=== PATIENT | female | born 1975 | race Caucasian/White ===

== ENCOUNTER 2023-10-26 09:13 | Outpatient (CLI) | payer OTHER, SELFPAY ==
--- OUTSIDE RECORDS SUMMARY | 2023-10-26 09:19 | XMS_ITS | Clinical Summary ---
Author Organization [facility] Address [place], [place] [address] Care Team Providers Care Bottle House Cleaners Supervisor Name Role Phone Mary Dennis CHECK GRADER Unavailable Unavailable Radha Vázquez MD Primary Care P rovider Allergies Active Allergy Reactions Criticality Noted Date Comments Morphine Rash 09/06/2008 Erythromycin With Ethanol 03/25/2006 Medications Medication Sig Dispensed Refills Start Date End Date Status multivitamin (MVI) tabletIndications: Abnormal urine odor Take 1 tablet by mouth once daily. 0 12/28/19 10 Active acetaminophen (TYLENOL EXTRA STRGTH) 500 mg tabletIndications: Other acute postoperative pain,Displacement of lumbar intervertebral disc without myelopathy Take 2 tablets by mouth 4 times daily for 5 days then take only as needed. Max acetaminophen dose: 4000mg in 24 hrs 60 tablet 08/12/19 15 Active cyanocobalamin (VITAMIN B12) 100 mcg tablet Take 100 mcg by mouth once daily. Active docusate (COLACE) 100 mg capsuleIndications :Constipation due to opioid therapy Take 1 capsule by mouth 2 times daily if needed for Constipation. 180 capsule 2 02/09/20 20 Active ondansetron (ZOFRAN) 4 mg tabletIndications: S/P right rotator cuff repair Take 1 Tablet (4 mg) by mouth every 8 hours if needed for Nausea/Vomiting. 20 Tablet 09/18/19 23 Active Denta 5000 Plus 1.1 % crea BRUSH WITH TOOTHPASTE ONCE TO TWICE DAILY 08/13/19 23 Active acyclovir (ZOVIRAX) 400 mg tabletIndications: Herpes simplex type 1 infection Take 1 Tablet (400 mg) by mouth two times daily. 180 Tablet 3 11/28/19 Active famotidine (PEPCID) 40 mg tabletIndications: Gastroesophageal reflux disease without esophagitis,Postga stric surgery syndrome Take 1 Tablet (40 mg) by mouth once daily. 90 Tablet 3 11/28/19 Active levonorgestrel-eth inyl estrad, 0.15-30 mg-mcg, (Ramon, 28,) 0.15-0.03 mg tabletIndications: Uses control Take 1 Tablet by mouth once daily. 84 Tablet 3 11/28/19 Active omeprazole (PRILOSEC) 20 mg Delayed-Release capsuleIndications :Gastroesophageal reflux disease without esophagitis,Postga stric surgery syndrome Take 1 Capsule (20 mg) by mouth once daily before a meal. 90 Capsule 3 11/28/19 Active potassium chloride (MICRO-K) 10 mEq Controlled-release capsuleIndications :Hypokalemia Take 2 Capsules (20 mEq) by mouth two times daily with meals. 360 Capsule 3 11/28/19 Active torsemide (DEMADEX) 20 mg tabletIndications: Swelling of lower extremity Take 2-3 Tablets (40-60 mg) by mouth once daily. Take 3 tablets on days when swelling is worse. 180 Tablet 3 11/28/19 23 Active cephalexin (KEFLEX) 250 mg capsuleIndications :Recurrent UTI Take 1 tablet (250 mg) once a day for UTI suppression. 90 Capsule 3 01/03/20 23 Active cephalexin (Keflex) 500 mg capsuleIndications :Cellulitis of left lower extremity Take 2 Capsules (1,000 mg) by mouth three times daily. 42 Capsule 12/27/19 23 Active tirzepatide, weight loss, (Zepbound) 2.5 mg/0.5 mL penIndications:Zheng ght loss counseling, encounter for Inject 0.5 mL (2.5 mg) subcutaneous once weekly. For 4 weeks, then increase to 5 mg (2 pens) once per week 2 mL 1 04/16/19 24 Active ARIPiprazole (ABILIFY) 15 mg tabletIndications: Moderate episode of recurrent major depressive disorder (HC),Anxiety disorder, unspecified type Take 0.5 Tablets (7.5 mg) by mouth once daily. 45 Tablet 1 05/28/19 24 Active busPIRone (BUSPAR) 30 mg tabletIndications: Anxiety disorder, unspecified type Take 1 Tablet (30 mg) by mouth two times daily. 180 Tablet 1 05/28/19 24 Active hydrOXYzine HCL (ATARAX) 10 mg tabletIndications: Anxiety disorder, unspecified type Take 0.5-1 Tablets (5-10 mg) by mouth every 6 hours if needed for Anxiety (nausea). 60 Tablet 2 05/28/19 24 Active lamoTRIgine (LAMICTAL) 200 mg tabletIndications: Moderate episode of recurrent major depressive disorder (HC) Take 1 Tablet (200 mg) by mouth two times daily. 180 Tablet 1 05/28/19 24 Active sertraline (ZOLOFT) 100 mg tabletIndications: Moderate episode of recurrent major depressive disorder (HC),Anxiety disorder, unspecified type Take 1 Tablet (100 mg) by mouth two times daily. 180 Tablet 1 05/28/19 24 Active metFORMIN (GLUCOPHAGE XR) 500 mg Extended-Release tabletIndications: Weight loss counseling, encounter for Take 2 Tablets (1,000 mg) by mouth once daily. 60 Tablet 3 07/16/19 24 Active levothyroxine (Euthyrox) 125 mcg tabletIndications: Hypothyroidism, unspecified type Take 1 Tablet (125 mcg) by mouth once daily. 90 Tablet 3 07/16/19 24 Active pseudoephedrine (SUDAFED 12 HOUR) 120 mg TbERIndications:Na marbin congestion Take 1 Tablet (120 mg) by mouth every 12 hours. 180 Tablet 1 07/20/19 24 Active naloxone (Narcan) 4 mg/actuation nasal sprayIndications:C hronic pain syndrome,Controlle d substance agreement signed 1 spray (4 mg) intranasally into 1 nostril. Administer into alternating nostrils. May repeat every 2 to 3 minutes. 1 Each 1 08/09/19 24 Active methocarbamoL (ROBAXIN) 750 mg tabletIndications: Chronic pain syndrome,Chronic right SI joint pain,Spasm TAKE 1 TO 2 TABLETS BY MOUTH EVERY 6 HOURS FOR MUSCLE SPASM 240 Tablet 09/08/19 24 Active gabapentin (NEURONTIN) 300 mg capsuleIndications :Chronic pain syndrome,Post laminectomy syndrome,Chronic right SI joint pain,Failed back surgical syndrome TAKE 2 CAPSULES IN THE AFTERNOON AND 3 CAPSULES AT BEDTIME 150 Capsule 10/01/19 24 Active buprenorphine (Belbuca) 150 mcg buccal filmIndications:Ch ronic pain syndrome,Post laminectomy syndrome,Chronic right SI joint pain,Failed back surgical syndrome Place 1 Film (150 mcg) in mouth, between cheek & gum every 12 hours. Use date: 10/15/23-11/13/23 60 Each 10/12/19 Active HYDROcodone-acetam inophen (7.5-325 mg/tablet)Indicati ons:Chronic pain syndrome,Post laminectomy syndrome,Failed back surgical syndrome,Encounter for therapeutic drug monitoring Take 1-1.5 Tablets by mouth every 4 hours if needed for Pain (max 5/day). Use dates 10/20/23-11/18/23 150 Tablet 10/17/19 Active buprenorphine (Belbuca) 75 mcg buccal filmIndications:Ch ronic pain syndrome Place 1 Film (75 mcg) in mouth, between cheek & gum at bedtime. Use date: 06/17/23-07/16/23 30 Each 06/14/19 24 024 Discontinued(*M ed complete/Regime n complete/Level of care change) gabapentin (NEURONTIN) 300 mg capsuleIndications :Chronic pain syndrome,Post laminectomy syndrome,Chronic right SI joint pain,Failed back surgical syndrome TAKE 2 CAPSULES IN THE AFTERNOON AND 3 CAPS AT BEDTIME 150 Capsule 08/09/19 24 024 Discontinued buprenorphine (Belbuca) 150 mcg buccal filmIndications:Ch ronic pain syndrome,Post laminectomy syndrome,Chronic right SI joint pain,Failed back surgical syndrome Place 1 Film (150 mcg) in mouth, between cheek & gum every 12 hours. Use date: 09/15/23-10/14/23 60 Each 09/12/19 24 024 Discontinued(Re order (E-cancel not sent)) HYDROcodone-acetam inophen (7.5-325 mg/tablet)Indicati ons:Chronic pain syndrome,Post laminectomy syndrome,Failed back surgical syndrome,Encounter for therapeutic drug monitoring Take 1-1.5 Tablets by mouth every 4 hours if needed for Pain (max 5/day). Use dates 09/20/23-10/19/23 150 Tablet 09/17/19 24 024 Discontinued(Re order (E-cancel not sent)) Active Problems Problem Noted Date Diagnosed Date Raynaud's phenomenon without gangrene 05/18/2023 Lateral epicondylitis of right elbow 12/07/2022 Controlled substance agreement signed 11/30/2022 Overview: [facility] Elaine Schwab CMA 1:36 PM 11/30/22 S/P right rotator cuff repair 10/30/2022 Nontraumatic complete tear of right rotator cuff 09/17/2022 S/P arthroscopy of right shoulder 09/17/2022 Severe episode of recurrent major depressive disorder, without psychotic features 03/14/2021 Hyperparathyroidism 01/28/2021 Overview: saw Endo in 2016, suspect eitology is due to D3 and Calcium deficiency related to Irving-Y Gastric bypass minimum of 500 mg of calcium 5000 International Units per day of D3 Hypertriglyceridemia 11/30/2020 Overview: 11/30/20 ASCVD risk score is 0%, TG 189, would not initiate statin or other medication at this time, cont healthy diet and exercise [ ] repeat lipid check in 2021 Last Lipids: Chol: 11/29/2020 160 T11/29/2020 189 HDL: 11/29/2020 63 LDL: 11/29/2020 59 LDL DIRECT: . No results found in past 5 years The 10-year ASCVD risk score (Carlo FINN Jr., et al., 2013) is: 0.3% Values used to calculate the score: Age: 45 years Sex: Female Is Non- : No Diabetic: No Tobacco smoker: No Systolic Blood Pressure: 102 mmHg Is BP treated: Yes HDL Cholesterol: 63 mg/dL Total Cholesterol: 160 mg/dL CKD (chronic kidney disease) stage 3, GFR 30-59 ml/min 11/29/2020 Overview: 2/2 multiple AKIs in setting of multiple UTI, most severe UTI had E coli Sepsis in December of 2019, was on ventilator requiring dialysis. Was able to stop dialysis in Dec 2019 but Cr plateaued at 1.9 despite trying to adjust medications that might have made it worse (torsemide and omeprazole) Recurrent UTI 11/29/2020 Overview: recurrent UTIs in [id number], had CT imaging negative for stones, cystoscopy with normal bladder wall Pain disorder with related psychological factor 03/28/2019 Sleep difficulties 04/30/2017 H/O sinusitis 01/22/2017 Overview: Has been on Chronic Pseudophed - helped to decrease the sinusitis. Was off pseudophed for a few months when Dr. Hogan left and had no refills and chronic post nasal drip was increased, coughing up more phelgm and nauseated due to phglem Anxiety disorder 10/27/2016 Genital herpes simplex 06/14/2015 MIld bilateral hip arthritis 03/20/2015 Chronic pain 03/14/2015 Obesity 09/23/2014 Arthritis of hand, left, degenerative 12/14/2013 L4-5 disk herniation 03/06/2013 Peripheral edema 12/03/2011 YOLANDA I (cervical intraepithelial neoplasia I) 02/2011 Overview: 05/30/2009 ASCUS/HPV+ 06/09/2010 LSIL 07/08/2010 [facility]: YOLANDA I 06/11/2011 LSIL 07/07/2011 [facility]: negative 03/29/2012 NIL/HPV+; [facility]: cervicitis 08/27/2015 ASCUS/HPV negative; [facility]: no biopsy 12/08/2019 NIL/HPV negative 11/27/2022 NIL/HPV negative Plan: Pap/HPV due 11/2025 Unspecified personality disorder 10/04/2009 Vitamin B12 deficiency 09/06/2008 Overview: after gastric bypass surgery (low normal B12; elevated methylmalonic acid) Premenstrual tension syndromes 03/25/2006 Unspecified hypothyroidism 03/25/2006 Gastroesophageal reflux disease without esophagi tis 03/25/2006 Chronic, continuous use of opioids Resolved Problems Problem Noted Date Diagnosed Date Resolved Date Controlled substance agreement signed 06/13/2021 11/30/2022 Overview: [facility] Patti Suazo .................... 06/13/2021 2:32 PM Controlled substance agreement signed 05/10/2020 06/13/2021 MILANA (acute kidney injury) 01/08/2020 Septic encephalopathy 01/06/20202020 Metabolic acidosis 01/06/2020 Metabolic acidemia 01/06/2020 Metabolic acidosis with respiratory acidosis 0 11/01/2020 Acute respiratory failure with hypercapnia 01/06/2020 11/01/2020 Septic shock due to undetermined organism 01/06/2020 11/01/2020 Pyelonephritis due to Escherichia coli 01/06/2020 11/01/2020 At risk for fluid volume overload 01/05/2020 11/01/2020 Acute renal failure (ARF) 01/05/2020 Severe sepsis with acute organ dysfunction 01/04/2020 11/01/2020 Sepsis secondary to UTI 01/04/202010/23 Encounter for screening labo ratory testing for COVID-19 virus 01/04/2020 11/01/2020 Hypokalemia 01/04/2020 11/01/2020 Controlled substance agreement signed 05/12/2019 06/13/2021 Overview: Judy Rios .[facility] Ami Huffman CMA....05/12/2019 1:08 PM Encounters for unspecified a dministrative purpose 03/28/2019 11/29/2020 Sepsis due to gram-negative urinary tract infection 12/12/2018 11/01/2020 MILANA (acute kidney injury) 12/11/2018 UTI (urinary tract infection) 12/11/2018 11/01/2020 Controlled substance agreement signed 07/15/2018 05/12/2019 Therapeutic drug monitoring 10/23/2016 11/29/2020 GABRIELLA (generalized anxiety disorder) 03/14/2015 04/12/2018 Pain medication agreement 04/24/2011 Overview: Signed at [facility] on 09/17/17 Major depressive disorder, r ecurrent episode, moderate 10/04/2009 04/12/2018 Unspecified constipation 02/25/2009 Unspecified essential hypertension 04/06/2007 05/30/2009 Major depressive disorder, r ecurrent episode, in full remission 04/06/2007 10/04/2009 Anxiety state, unspecified 03/25/2006 0 05/05/2016 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 09/19/2021 Unsatisfactory cervical cytology smear 06/24/2015 Overview: UNS Encounter for screening colonoscopy 11/05/2022 Encounters Date Type Department Care Team Description 10/20/2023 8:30 AM CDT Office Visit [facility] [address] [place] [address] Shivani Marinelli NP Follow Up 10/20/2023 Travel 10/11/2023 Refill [facility] [address] [place] [address] Siobhan Mills PA Refill Request 10/01/2023 Refill [facility] [address] [place] [address] Siobhan Mills PA Refill Request (Gabapentin) 09/20/2023 Medical Messaging [facility] [address] [place] [address] Harman Martinez MD Steroid pills 09/17/2023 1:45 PM CDT - 09/17/2023 11:59 PM CDT Hospital Encounter [facility] [address] [place] [address] Encounter for screening for malignant neoplasm of breast, unspecified screening modality 09/17/2023 Travel 09/10/2023 Refill [facility] [address] [place] [address] Siobhan Mills PA Refill Request (buprenorphine and HYDROcodone-acetaminop hen ) 09/06/2023 1:20 PM CDT Office Visit [facility] [address] [place] [address] Harman Martinez MD Musculoskeletal Problem (Consult low back pain, last seen in 2016) 09/06/2023 Refill [facility] [address] [place] [address] Siobhan Mills PA Refill Request (Methocarbamol) 09/06/2023 Travel 09/03/2023 7:45 AM CDT Telemedicine [facility] [address] [place] [address] Judy Luis MD Medication Management; Telehealth 09/03/2023 Travel 08/20/2023 3:15 PM CDT Office Visit [facility] [address] [place] [phone] Teresa Coy PA Ankle Pain/problem (Left ankle pain) 08/20/2023 Travel 08/16/2023 Telephone [facility] [place] [address] [address] Bob Mcfarlane DPM Referral 08/15/2023 4:44 PM CDT - 08/15/2023 7:[address] [facility] [address] [place] [address] Karuna Christopher PA Injury of left ankle, initial encounter (Primary Dx) Discharge Disposition: Home Self Care 08/15/2023 Travel 08/13/2023 10:25 AM CDT Ancillary Procedure [facility] [address] [place] [address] 08/13/2023 Travel 08/11/2023 Orders Only [facility] [address] [place] [address] Radha Vázquez MD 1 scan: (1-Ord) RAYUS RAD, LUMBAR SPINE WO 1.2T OPEN, 08/06/2023 08/10/2023 Refill [facility] [address] [facility] [address] [place] [address] Jessi Christensen NP Refill Request (Belbuca films 150 mg BID andNorco7.5 mg to [facility] in [place]) 08/08/2023 Refill [facility] [address] [facility] [address] [place] [address] Siobhan Mills PA Refill Request (Gabapentin, Methocarbamol) from Last 3 Months Immunizations Name Administration Dates Next Due COVID-19 Vaccine Spikevax (M oderna 50mcg/0.5mL) 12YO+ [id number] Formula PF 07/16/2023 COVID-19 vaccine (Moderna 100mcg/0.5mL) PF, MDV 06/27/2020,05/29/2020 COVID-19 vaccine (Pfizer-Bio NTech 30mcg/0.3mL) 12YO+ BIVALENT PF, MDV 11/28/2021 COVID-19 vaccine (Pfizer-Bio NTech 30mcg/0.3mL) 12YO+ WU-SUCROSE PF, MDV 09/19/2021 DTP 06/05/1981, 8,1976,1976,1976 Hepatitis A (Adult) 04/03/2013,07/23/2011 Hepatitis B (Adult) 12/03/2009,10/29/2009 Hepatitis B (Peds) 07/23/2011 Human Papilloma Virus Vaccine 03/25/2006 Influenza, IIV3 (Age >=3 years) 11/23/19 16,11/21/2013,11/29/2012,2011,12/04/2010 Influenza, IIV4 11/17/2022, 2,11/29/2020,2019,12/27/2018,02/28/2018,01/08/2017,1 MMR 07/21/1989,07/16/1977,1976 Oral Polio Vaccine 06/05/1981, 8,1976,1976,1976 Pneumococcal Conj 20-valent (Prevnar 20) 11/27/2022 Td (Age >=7 Years) 09/19/2021,02/26/2005 Tdap 07/23/2011 Family History Medical History Relation Name Comments Good Health Brother 2 Hypertension Father Cancer-colon Maternal Aunt Heart Disease Maternal Grandfather Other Maternal Grandmother ANEURYS M Diabetes Mother Hypertension Mother Osteoporosis Mother fractured pelvi s Urolithiasis Mother Cancer-breast Paternal Aunt Heart Disease Paternal Grandfather Seizures Paternal Grandmother MS Relation Name Status Comments Brother 1 Alive Brother 2 Father Alive Maternal Aunt Maternal Grandfather Maternal Grandmother Mother Alive Paternal Aunt Paternal Grandfather Paternal Grandmother Social History Tobacco Use Types Packs/Day Years Used Date Smoking Tobacco: Former Cigarettes 1 3 0 02/23/1996 - 02/22/1999 Smokeless Tobacco: Never Tobacco Cessation:Counseling Given: Yes Alcohol Use Standard Drinks/Week Comments No 0 (1 standard drink = 0.6 oz pur e alcohol) PHQ-2 Answer Date Recorded PHQ-2 TOTAL SCORE 2 09/03/2023 Social Connections Answer Date Recorded Frequency of Communication with Friends and Fami ly Not on file 02/13/2021 Alcohol Use Answer Date Recorded How often do you have a drink containing alcohol ? 0 08/22/2021 Average Number of Drinks Not on file 022 Frequency of Binge Drinking Not on file 02/2021 Financial Resource Strain Answer Date R ecorded Difficulty of Paying Living Expenses Not on file 02/13/2021 Difficulty of Paying Living Expenses Not on file 02/13/2021 Sex and Gender Information Value Date Recorded Sex Assigned at Not on file Gender Identity Not on file Sexual Orientation Not on file Obstetrics History Para Term AB IAB SAB Ectopic Multiple Livin g Live Births 0 0 0 0 0 0 0 0 0 0 Last Filed Vital Signs Vital Sign Reading Time Taken Comments Blood Pressure 125/89 10/20/2023 8:42 AM CDT Pulse 93 10/20/2023 8:42 AM CDT Temperature 36.3 ??C (97.3 ??F) 10/20/2023 8:42 AM CD T Respiratory Rate 14 10/20/2023 8:42 AM CDT Oxygen Saturation 100% 10/20/2023 8:42 AM CDT Inhaled Oxygen Concentration - - Weight 123.9 kg (273 lb 3.2 oz) 09/06/2023 1:26 PM CDT shoes on Height 162.6 cm (5' 4) 08/15/2023 4:49 PM CDT Body Mass Index 46.89 08/15/2023 4:49 PM CDT Plan of Treatment Upcoming Encounters Date Type Department Care Team (Late st Contact Info) Description 10/26/2023 9:40 AM CDT Office Visit [facility] [address] [place] [address] Harman Martinez MD [address] [facility] [address] Arrived 11/26/2023 7:45 AM CDT Telemedicine [facility] [address] [place] [address] Judy Luis MD [address] [place] [address] 12/24/2023 10:00 AM CDT Office Visit [facility] [address] [facility] [place] [address] Harman Martinez MD [address] [place] [address] 01/28/2024 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 Visit [facility] [address] [place] [address] Siobhan Mills PA [address] [place] [address] Health Maintenance Due Date Last Done Comments Influenza for age 9-49 10/24/2023 3, 11/28/2021, 11/29/2020, Additional history exists BMI (ht and wt on same day) for age 18+ 07/15/2024 07/16/2023, 11/27/2022, 08/27/2022, Additional history exists Depression screening for age 12+ 09/05/2024 09/06/2023, 09/03/2023, 05/28/2023, Additional history exists Mammogram for age 45-75 09/16/2024 09/17/19 24, 11/06/2021, 08/18/2019, Additional history exists Pap test for age 21-65 11/27/2025 3, 11/27/2022, 12/08/2019, Additional history exists Lipids for age 45-75 11/28/2027 11/27/2022, 03/19/2022, 03/04/2022, Additional history exists Tetanus booster 09/20/2031 09/19/2021, 06/24, 02/26/2005 Colonoscopy through age 75 05/04/2032 05/04/2022 Hepatitis C screening for age 18-79 Completed 02/18/2011, 10/09/2009, 12/05/2008, Additional history exists Tdap Completed 07/23/2011 HIV for age 15-65 Completed 09/19/2021, , 10/09/2009, Additional history exists Pneumococcal series for age 6-64 Aged Out 11/27/2022 No longer eligible based on patient's age to complete this topic COVID-19 vaccine series Completed 07/16/19 24, 11/28/2021, 09/19/2021, Additional history exists Medical Devices Implanted Type Area Javascript Engineer Device Identifier Shelf Expiration Date Model / Serial / Lot Ancr Soft Tissue [id number] Swivelock - [id number] Implanted:Qty: 1 on 09/17/2022 by Memo Eaton MD at [facility] Right: Shoulder [employer] 03/24/2026 AR-[id number] / / [id number] Biocomposite Knotless Swivelock [place] Implanted:Qty: 1 on 09/17/2022 by Memo Eaton MD at [facility] Right: Shoulder [employer] 05/22/2026 / [id number] C / [id number] Biocomposite Knotless Swivelock [place] Implanted:Qty: 1 on 09/17/2022 by Memo Eaton MD at [facility] Right: Shoulder [employer] 10/22/2025 / [id number] CTT / [id number] Biocomposite Knotless Swivelock [place] Implanted:Qty: 1 on 09/17/2022 by Memo Eaton MD at [facility] Right: Shoulder [employer] 04/21/2026 / [id number] C / [id number] Biocomposite Knotless Swivelock [place] Implanted:Qty: 1 on 09/17/2022 by Memo Eaton MD at [facility] Right: Shoulder [employer] 09/21/2025 / [id number] CT / [id number] Procedures Procedure Name Priority Date/Time Associated Diagnosis Comments AMB EPIDURAL STEROID INJECTION Routine 10/26/2023 8:20 AM CDT Lumbar radiculopathy 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 XR MAMMO BILAT SCREENING Routine 09/17/2023 2:03 PM CDT Encounter for screening for malignant neoplasm of breast, unspecified screening modality XR ANKLE 3 VIEWS LEFT STAT 08/15/2023 5:41 PM CDT XR CALCANEUS 2 VIEWS LEFT Routine 08/13/2023 10:24 AM CDT Chronic heel pain, left MR SPINE LUMBAR WO Routine 08/06/2023 12 :00 AM CDT Neuropathy of right foot HPV THIN PREP Routine 11/27/2022 11:16 AM CDT Screening for cervical cancer LIPID PANEL W REFLEX MEASURED LDL Routine 11/27/2022 10:33 AM CDT 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 ??Recommend annual mammograms. MAMMOGRAM ASSESSMENT: ??ACR 1 Negative PATIENTS: You will also receive a letter with your examination results in an easy to read format. ??If you have questions about your results, please contact your referring provider. Narrative 09/17/2023 3:44 PM CDT For Patients: As a result of the Cures Act, medical imaging exams and procedure reports are released immediately into your electronic medical record. You may view this report before your referring provider. If you have questions, please contact your health care provider. XR MAMMO BILAT SCREENING [[id number]] CLINICAL HISTORY: ??This is an asymptomatic 48 y.o. patient. INDICATION FOR EXAM: Mammogram Screening. TECHNIQUE: CC & MLO views were obtained. ??This study was evaluated with the assistance of Computer-Aided Detection. COMPARISON FILM: Yes 11/06/21 [place] ?? FINDINGS: ??The breasts are almost entirely fatty. There are no dominant masses, suspicious micro calcifications or areas of architectural distortion. Radha Vázquez MD MAMMO * XR ANKLE 3 VIEWS LEFT (08/15/2023 5:41 PM CDT) Anatomical Region Laterality Modality ANKLES, ANKLE L Digital Radiogra phy 08/15/2023 6:42 PM CDT Narrative 08/15/2023 6:42 PM CDT For Patients: ??As a result of the Cures Act, medical imaging exams and procedure reports are released immediately into your electronic medical record. ??You may view this report before your referring provider. ??If you have questions, please contact your health care provider. Indication: Trauma. Technique: Left ankle, 3 views. Comparison: None. Findings/Impression: Bones: Alignment is normal. Chronic appearing bimalleolar avulsive changes. Recommend correlation with point tenderness for to exclude acute avulsion injury. Otherwise, no displaced fractures or bone lesions. ?? Joint spaces: Degenerative changes. Soft tissues: Diffuse subcutaneous edema. Dictated by Zohaib Mcwilliams MD @ 08/15/2023 6:42:22 PM (Electronically Signed) Procedure Note Zohaib Mcwilliams MD - 08/15/2023 For Patients: As a result of the Cures Act, medical imagingexams and procedure reports are released immediately into your electronicmedical record. You may view this report before your referring provider.If you have questions, please contact your health care provider. Indication: Trauma. Technique: Left ankle, 3 views. Comparison: None. Findings/Impression: Bones: Alignment is normal. Chronic appearing bimalleolar avulsivechanges. Recommend correlation with point tenderness for to exclude acuteavulsion injury. Otherwise, no displaced fractures or bone lesions. Joint spaces: Degenerative changes. Soft tissues: Diffuse subcutaneous edema. Dictated by Zohaib Mcwilliams MD @ 08/15/2023 6:42:22 PM (Electronically Signed) Karuna NUNES GENERAL IMAGING * XR CALCANEUS 2 VIEWS LEFT (08/13/2023 10:24 AM CDT) Anatomical Region Laterality Modality CALCANEI, CALCANEUS L Computed R adiography Narrative 08/13/2023 11:13 AM CDT Indication: Chronic left heel pain. Technique: 2 views of the left calcaneus. Findings: Plantar calcaneal spur. ??Tiny posterior spur along the Achilles tendon insertion site. ??No fracture, dislocation, or erosion. Impression: Calcaneal spurring. ??The examination is otherwise negative. Radha Vázquez MD GENERAL IMAGING * MR SPINE LUMBAR WO (08/06/2023 12:00 AM CDT) Anatomical Region Laterality Modality Spine, LUMBAR SPINE Magnetic Res onance Radha Vázquez MD MR * HPV HIGH RISK (11/27/2022 11:16 AM CDT) TYPE 16 Negative Negative 12/02/2022 5:48 AM CDT [facility] [employer] [facility] TYPE 18 Negative Negative 12/02/2022 5:48 AM CDT [facility] [employer] OTHER HIGH RISK TYPES Negative Negative 12/02/2022 5:48 AM CDT [facility] [employer] Other (Cervical) Non-Blood / Unknown 11/27/2022 11:16 AM CDT 11/30/2022 9:44 AM CDT Narrative [facility] - 12/02/2022 5:48 AM CDT HPV types 16, 18, 31, 33, 35, 39, 45, 51, 52, 56, 58, 59, 66 and 68 DNA were undetectable or below the pre-set threshold. Methodology: Sarah Kobi 4800 HPV Test Radha Vázquez MD [facility] [address] [place] [address], * LIPID PANEL W REFLEX MEASURED LDL (11/27/2022 10:33 AM CDT) CHOLESTEROL,TOTAL 176 100 - 199 mg/dL 11/27/2022 12:00 PM [facility] Comment: Cholesterol, Total Reference Ranges Desirable <200 mg/dL Borderline 200-239 mg/dL High >=240 mg/dL TRIGLYCERIDES 147 <150 mg/dL 11/27/2022 12:00 PM [facility] HDL CHOLESTEROL 65 >40 mg/dL 12:00 PM [facility] NON-HDL CHOLESTEROL 111 <145 mg/dl 11/27/2022 12:00 PM [facility] CHOL/HDL RATIO 2.71 <4.50 11/27/2022 12:00 PM [facility] LDL CHOLESTEROL 82 <=130 mg/dL 11/27/2022 12:00 PM [facility] VLDL CHOLESTEROL 29 <=30 mg/dL 11/27/2022 12:00 PM [facility] PROVIDER ORDERED STATUS RANDOM 11/27/2022 12:00 PM [facility] Blood BLOOD SPECIMEN / Unknown Venipuncture / Unknown 11/27/2022 10:33 AM CDT 11/27/2022 10:34 AM CDT Judy Luis MD CHEMISTRY [facility] [address] [place] [address] * COLONOSCOPY (05/04/2022 11:08 AM CDT) 05/04/2022 11:0 8 AM CDT Narrative Transcriptions Ezekiel Linda, - 05/04/2022 11:40 AM CDT Patient Name: Karuna Nelson Procedure Date: 05/04/2022 Gender: Female Date of : 1975 Admit Type: Ambulatory Procedure: Colonoscopy Proceduralist: Ezekiel Linda MD [facility] Referring MD: Radha Vázquez Indications/Pre-Op Diagnosis: Screening for colorectal malignant neoplasm, This is the patient's first colonoscopy Medications: Propofol per Anesthesia Procedure Description: The patient had risks, benefits and alternatives explained to andgave informed consent. The patient had a stable cardiopulmonary status and judged an adequate candidate for conscious sedation. The endoscope [id number] was passed through the anus andadvanced to the cecum, identified by appendiceal orifice and ileocecal valve.The colonoscopy was performed without difficulty. The patient toleratedthe procedure well. The quality of the bowel preparation was adequate to identify polyps greater than 5 mm in size. The ileocecal valve, appendiceal orifice, and rectum were photographed. Complications: No immediate complications. Estimated Blood Loss & Specimen: Estimated blood loss: none. Specimen collected - None Findings: Non-bleeding internal hemorrhoids were found during retroflexion. The hemorrhoids were Grade II (internal hemorrhoids that prolapse butreduce spontaneously). Impressions/Post-Op Diagnosis: - Non-bleeding internal hemorrhoids. - No specimens collected. Recommendation: - Discharge patient to home. - Patient has a contact number available for emergencies. The signsand symptoms of potential delayed complications were discussed with the patient. Return to normal activities tomorrow. Written discharge instructions were provided to the patient. - High fiber diet. - Continue present medications. - Repeat colonoscopy in 10 years for screening purposes. Moderate Sedation: Moderate (conscious) sedation was personally administered by an anesthesia professional. The following parameters were monitored:oxygen saturation, heart rate, blood pressure, and response to care. Ezekiel Linda MD 05/04/2022 11:40:30 AM This report has been signed electronically. Note Initiated On: 05/04/2022 11:08 AM Ezekiel Linda DO PROCEDURE ORD * ANTI HIV 1/2 (09/19/2021 9:47 AM CDT) [facility] HIV-1/HIV-2 ANTIBODY Non-Reacti ve Non-Reacti ve 09/19/2021 9:28 PM CDT [facility] Comment:HIV-1 p24 and HIV-1/ HIV-2 Ab not detected. Blood BLOOD SPECIMEN / Unknown Venipuncture / Unknown 09/19/2021 9:47 AM CDT 09/19/2021 9:50 AM CDT Radha Vázquez MD SEND OU TS [facility] 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 02/18/2011 4:06 PM BLISTER PACKING MACHINE TENDER Jeevan Madrid MD SEND OUTS [facility] INTERNAL ZIP [address] [address] from Last 3 Months or Most Recently Relevant to Health Maintenance Advance Directives * Full Code (Latest Code Status on File) Date Activated Date Inactivated Comments 09/17/2022 9:33 AM 09/18/2022 12:08 PM Question Answer Comments Code Status Discussion: Unable to Assess Preferences, Provider to review later * Full Code Date Activated Date Inactivated Comments 05/04/2022 9:47 AM 05/04/2022 2:57 PM Question Answer Comments Code Status Discussion: Discussed * Full Code Date Activated Date Inactivated Comments 01/06/2020 3:13 PM 01/15/2020 8:00 PM Question Answer Comments Code Status Discussion: Not Discussed * Full Code Date Activated Date Inactivated Comments 01/04/2020 4:47 PM 01/06/2020 3:11 PM Question Answer Comments Code Status Discussion: Discussed * Full Code Date Activated Date Inactivated Comments 12/11/2018 4:49 PM 12/16/2018 3:07 PM Question Answer Comments Code Status Discussion: Discussed Care Teams Bottle House Cleaners Supervisor Relationship Specialty Start Date End Date Radha Vázquez MD [address] [place] [address] [place] [address] PCP - General Family Practice 11/29/20 Mary Dennis, SAUL Psychiatry Nurse Practitioner 04/24/16
--- OUTSIDE RECORDS SUMMARY | 2023-10-26 09:19 | XMS_ITS | Clinical Summary ---
Author Organization [facility] Facility Address [address] [address] Care Team Providers Care Public Employment Mediator Name Role Phone Denise Hogan MD Primary Care Provider [phone] Social History Tobacco Use Types Packs/Day Years Used Date Smoking Tobacco: Never Assessed Sex and Gender Information Value Date Recorded Sex Assigned at Not on file Gender Identity Not on file Sexual Orientation Not on file Plan of Treatment Health Maintenance Due Date Last Done Comments Hepatitis B Vaccine (1 of 3 - 19+ 3-dose series) 1995 Influenza Vaccine (#1) 2023 Pneumococcal Vaccine: Pediat rics (0 to 5 Years) and At-Risk Patients (6 to 64 Years) Aged Out No longer eligi ble based on patient's age to complete this topic Care Teams Public Employment Mediator Relationship Specialty Start Date End Date Denise Hogan MD PCP - General Family Medicine 02/05/20
--- OUTSIDE RECORDS SUMMARY | 2023-10-26 09:19 | XMS_ITS | Continuity of Care Document ---
Author Organization [facility] Address [address] [place] [id number] Phone Care Team Providers Care Hair Stylist Name Role Phone Mala Penny MD Unavailable Unavailable Allergies, Adverse Reactions, Alerts Substance Reaction Status Criticality morphine Active No Information Medications Medication Instructions Dosage Effective Dates (start - stop) Status Comments TIROSINT (unknown strength) Not Available - Active HYDROCODONE-ACETAMINOP HEN (unknown strength) Not Available - Active GABAPENTIN (unknown strength) Not Available - Active Procedures Procedure Date Postop Followup Visit Bilateral Low Back Disk Surgery/Decompre ss Bilateral Pa Low Back Disk Surgery/Decom press Office/Outpatient Visit,Est, Mod 2014 Office/Outpatient Visit,[facility] [place] Advance Directives Directive Yes / No Effective Date File Name No Information Encounters Encounter Description Practice Location Reason(s) For Visit Diagnoses Date Provider Providers Copied on Encounter [facility], [address], [place], [place], [id number], [place] [phone] [facility] No Information 3201 [address] Mehbod Amir. [facility], [address] [place] [address] [address], [place], [place], [id number] , [place]. [phone] [facility], [address], [place], [place], [id number], [place] [phone] [facility] OVERWEIGHTSpin al stenosis of lumbar region with neurogenic claudication 0-201 5 Mehbod Amir. [facility], [address] [place] [address] [address], [place], [place], [id number] , [place]. tel:[phone] Referring Provider: Vickie Saleem, [facility] [address], [address]. tel:[phone] [facility], [address], [place], [place], [id number], [place] tel:[phone] [facility] No Information 5 Mehbod Amir. [facility], [address], [place], [place], [id number] , [place]. [phone] Referring Provider: Mala Penny, [facility] [address], [place], [address] . tel:[phone] Office/Outpa tient Visit,Est, Mod [facility], [address], [place], [place], [id number], [place] [phone] [facility] back and leg pain (chief complaint) OVERWEIGHTUnsp ecified hypothyroidism Displacement of intervertebral disc, site unspecified, without myelopathy 5 Mehbod Amir. [facility], [address], [place], [place], [id number] , [place]. [phone] Referring Provider: Mala Penny, [facility] [address], [place], [address] . tel:[phone] Office/Outpa tient Visit,New, Mod Z [facility], [address] [facility] [address], [place], [address], [place] tel:[phone] [facility] Hypothyroidism 3 Mehbod Amir. [facility], [address] [place] [address] [address], [place], [place], [id number] , [place]. tel:[phone] Referring Provider: Vickie Saleem, [facility] [address] [place] [address], [address]. tel:[phone] Family History Family Member Type Diagnosis Age At Onset No Information Payers Payer name Insurance type Covered republic[id number] [facility] [id number] Social History Type Description Quantity Date Captured Comments Sex Female Smoking Status No Information Chief Complaint And Reason For Visit No Information Reason For Referral Reason For Referral No Information History Of Present Illness Encounter Date Complaint History Of Prese nt Illness No Information Functional Status Date Functional Assessmen t No Information Instructions Date Instruction Additional Infor catherine Weight Management Related to Ove rweit Weight Management Related to Ove rweight Assessments Type Assessment Date No Information Patient Care Teams Name Effective Dates (start - stop) Status Members No Information
== END 2023-10-26 09:14 | disposition home or self-care (01) ==
PROVIDERS: PCP Family Medicine; Visit Provider Family Medicine
DX: M54.16 Radiculopathy, lumbar region (principal); M51.36 Other intervertebral disc degeneration, lumbar region
CPT/HCPCS: 64483; J1100; Q9966

== ENCOUNTER 2024-01-14 14:11 | Outpatient (CLI) | payer OTHER, SELFPAY ==
--- OUTSIDE RECORDS SUMMARY | 2024-01-14 14:14 | XMS_ITS | Data Portability ---
Author Organization [facility], [facility] Address [address] [place] [address] Care Team Providers Care Social Human Services Assistants Name Role Phone [facility] Primary Care Provider Assessment No assessment recorded. Plan of Treatment Reminders Order Date Submit Date Provider Last Modified By Organization Details Last Modified Time Details Appointments None recorded. Lab urinalysis , complete 2019 020 [facility], [address], [address], [address], 0 17:03:18 culture, urine 2019 020 [facility], [address], [place], [address], 0 09:36:33 urinalysis , complete 2020 021 [facility], [address], [place], [address], 1 17:15:38 culture, urine 2020 021 [facility], [address], [place], [address], 1 09:59:15 Referral None recorded. Procedures None recorded. Surgeries None recorded. Imaging None recorded. Medication Orders nitrofuran toin macrocryst al 50 mg capsule 2019 020 [facility] [address] [place] [address], [address], 0 18:02:28 Patient TargetsNo targets recorded. Patient Instructions Encounter Date Encounter Id Patient Instructions Last Modified By Organization Details Last Modified Time 01/30/2020 [id number] Cystoscopy today is normal. We will obtain a urinalysis and urine culture today to make sure infection is gone. Recommend we start nitrofurantoin 50 mg at bedtime to prevent infection. Urinary tract otherwise looks good. No sign of obstruction. Follow up Dr. Jordan in 3 months. Call sooner if you get a UTI. See information below on urinary tract infections in women: Recurrent urinary tract infections (UTI) in women is a costly health care problem with estimated annual costs of $2.47 billion. UTI's tend to cluster in the first 3-4 months after an index infection. For sexually active women in childbearing years, there is a higher risk of UTI's in those who use spermicidal gels and barrier methods such as the diaphragm. Treatment options using antibiotics for prevention of uncomplicated UTI's include: Low dose daily prophylaxis with an antibiotic (Nitrofurantoin) Post-coital prophylaxis Self start therapy Various non-antibiotic therapies for prevention of UTI's include the following: Vaginal Estrogen: This is often used in post-menopausal women to prevent UTI's. Vaginal estrogen promotes colonization of Lactobacillus which is a bacteria that prevents UTI's. Vaginal estrogen is safe and effective, even in women with a history of breast or uterine cancer as very little if any, ever gets into the circulation. Oral estrogen is not effective for UTI prevention. Applied vaginally twice weekly at night, one gram. Cranberry: Proanthocyanins (PAC's) of cranberry inhibit adherence of Escherichia coli bacteria to the cell jade that line the bladder. The PAC's do not kill the bacteria but rather inhibit the first step in the infection process. However, little is known about what cranberry product is most effective. The level of PAC's varies in cranberry products and is not regulated. Cranberry capsules and tablets are more cost-effective compared to juice. However products made from cranberry skins are probably less effective than dried cranberry juice. Standard PAC dose is 36 mg daily. Lactobacillus/Probio tics: The use of Lactobacillus crispatus intravaginal suppositories once daily ,may offer benefit for prevention of UTI by replenishing normal bacteria as shown in clinical trials. These can be purchased in a health food/supplement store. Suggest you use intravaginal lactin-V probiotic 5 days, then once per week, or L. rhamunosus of L. reuteri orally twice daily Vitamin C: Ascorbic acid (vitamin C) acidifies the urine, which theoretically can stall bacterial growth. Studies suggest that vitamin C reduces urinary nitrates to reactive nitrogen oxides. However strong clinical data is not available. Doses range from 100 to 2000 mg orally per day. Methenamine: Methenamine is hydrolyzed to ammonia and formaldehyde in acidic urine, acting as a potent agent to kill bacteria through bacterial cell wall destruction, protein denaturation and inhibition of bacterial multiplication. This medication has been prescribed for more than 100 years! It is well tolerated and >4% of patients report nausea or diarrhea. Methenamine has been reported in two placebo- controlled trials to prevent UTI in women. It was less effective in women with urinary catheters. Standard dose is one gram orally twice daily. D-mannose: The mechanism of D-mannose is as a FimH antagonist, inhibiting the adherence of E. Coli bacteria to the bladder wall. D-mannose appears to be most effective when instilled directly into the bladder by way of a catheter. However, further investigation is needed. Standard dose is D-mannose powder 2 grams daily. Hyaluronic Acid (BRAMBILA) and Chondroitin Sulfate (CS) aim to restore the glycosaminoglycan layer of the bladder which normally protects the bladder from insults and infections. This is instilled directly into the bladder but more studies are needed to demonstrate efficacy and it's very costly. Standard dose is sterile solution of high concentration BRAMBILA and CS in 50 ml water with calcium chloride every week during first month, and then once monthly for 4 months. Acupuncture: Clinical studies are limited but show some promise. Puncture points are located in the lower abdomen, back or lower extremities, and treatment is twice weekly for 4 weeks. Vaccine therapy: Vaccine targets include the compound on the cell surface of bacteria (polysaccharides, iron receptors and toxins) but unfortunately a successful vaccine has not been forthcoming. Currently, no licensed vaccine is available. Bermudian Herbal Medicines (CHM's) have been used to treat UTI's for more than 2000 years. CHM's may confer diuretic, antibiotic, immune enhancing, anti-fever, anti-inflammatory and pain relieving effects. Seven randomized controlled studies have shown some benefit either in place of or in addition to antibiotics in post-menopausal women. Further research is needed. Alternative Botanical Supplements: such as Vaccinium macrocarpon (cranberry), cranberry-lingonberry , berberine sulfate, uva versi (bearberry leaf) may be used but lack scientific evidence. Home remedies such as garlic pills or Taraxacum officinale (dandelion) leaf or baking soda, Vaccinium myrtillus (blueberry anti-adhesive effects) Arctium lappa (burdock), Thania officinalis, (marshmallow), Apium gravenolens (celery seed) etc. Not available 01/30/2020 15:27:29 05/02/2020 [id number] On pelvic examination, there is a slight bulge in the vaginal area on the rectal side. We call this a rectocele. Sometimes this can result in difficulty totally evacuating the stool. I suggest you see a toe lining closer about this. I do not know if this is entirely responsible for the drawing-like sensation that you are experiencing. Suggest you stay on nitrofurantoin 50 mg at bedtime to prevent infection. Follow-up with Dr. Jordan in 3 months. Perhaps at that time we can take you off nitrofurantoin. [email or web address] Not available 05/02/2020 14:56:16 Reason for Referral None Reported. Results Created Date Observation Date Name Description Value Unit Range Abnormal Flag Note LastModifiedBy Organization Detail LastModifiedTime 01/30/2001/30/2020 urina lysis , compl ete color -advantus YELLOW yellow Not Available [facility] [address], [place], [address], 01/31/2020 17:03:18 01/30/20 20 01/30/2020 urina lysis , compl ete appearance -advantus CLEAR clear Not Available [facility] [address], [place], [address], 01/31/2020 17:03:18 01/30/20 20 01/30/2020 urina lysis , compl ete glucose -advantus NEGATI VE mg/dL negati ve Not Available [facility] [address] [place] [address], [place], [address], 01/31/2020 17:03:18 01/30/20 20 01/30/2020 urina lysis , compl ete bilirubin -advantus NEGATI VE negati ve Not Available [facility] [address] [place] [address], [place], [address], 01/31/2020 17:03:18 01/30/20 20 01/30/2020 urina lysis , compl ete ketones -advantus NEGATI VE mg/dL negati ve Not Available [facility] [address] [place] [address], [place], [address], 01/31/2020 17:03:18 01/30/20 20 01/30/2020 urina lysis , compl ete sp. gravity -advantus 1.015 1.010- 1.025 Not Available [facility] [address] [place] [address], [place], [address], 01/31/2020 17:03:18 01/30/20 20 01/30/2020 urina lysis , compl ete pH -advantus 5.5 5.0-8. 0 Not Available [facility] [address] [place] [address], [place], [address], 01/31/2020 17:03:18 01/30/20 20 01/30/2020 urina lysis , compl ete protein -advantus NEGATI VE mg/dL negati ve Not Available [facility] [address] [place] [address], [place], [address], 01/31/2020 17:03:18 01/30/20 20 01/30/2020 urina lysis , compl ete urobilinogen -advantus 0.2 normal Not Available [facility] [address] [place] [address], [place], [address], 01/31/2020 17:03:18 01/30/20 20 01/30/2020 urina lysis , compl ete nitrites -advantus NEGATI VE negati ve Not Available [facility] [address] [facility] [address], [place], [address], 01/31/2020 17:03:18 01/30/20 20 01/30/2020 urina lysis , compl ete blood -advantus NEGATI VE negati ve Not Available [facility] [address] [facility] [address], [place], [address], 01/31/2020 17:03:18 01/30/20 20 01/30/2020 urina lysis , compl ete leukocytes -advantus NEGATI VE negati ve Not Available [facility] [address] [facility] [address], [place], [address], 01/31/2020 17:03:18 01/30/20 20 01/30/2020 urina lysis , compl ete total urine volume (mL) 100 /mL ----- ----- ----- ----- ----- ----- ----- ----- ----- ----- ----- ----- ----- ----- ---- *Plemariana willson note the follo wing minim um quant ities for addit ional urine testi ng: - Atypi cals: 3 mL - Cytol ogy: 20 mL - GC/CH : 2 mL - FISH: 30 mL - Atypi cals w/ GC/CH : 5 mL - Cytol ogy PLUS FISH: 50 mL - Urine Cultu re: 3 mL ----- ----- ----- ----- ----- ----- ----- ----- ----- ----- ----- ----- ----- ----- ---- Not Available [facility] [address] [facility] [address], [place], [address], 01/31/2020 17:03:18 01/30/20 20 01/30/2020 urina lysis , compl ete U-WBC 0 - 2 [hpf] 0 - 2 Not Available [facility] [address] [place] [address], [place], [address], 01/31/2020 17:03:18 01/30/20 20 01/30/2020 urina lysis , compl ete U-RBC 0 - 2 [hpf] 0 - 2 Not Available [facility] [address] [place] [address], [place], [address], 01/31/2020 17:03:18 01/30/20 20 01/30/2020 urina lysis , compl ete bacteria Small [hpf] negati ve abnormal Not Available [address], [place], [address], 01/31/2020 17:03:18 01/30/20 20 01/30/2020 urina lysis , compl ete squamous epi Small /lpf negati ve,sma ll Not Available [facility] [address] [place] [address], [place], [address], 01/31/2020 17:03:18 01/30/20 20 01/30/2020 cultu re, urine final report Microb iology result s SOURC E Void KNOWN ALLER GIES see chart TREAT MENT see chart MEDIA PLATE D AT: Media plate d on 2019 @ 3:47 PM RESUL T No Growt h Not Available [facility] [address] [place] [address], [place], [address], 02/02/2020 09:36:33 05/03/19 21 05/02/2020 urina lysis , compl ete color -advantus YELLOW yellow Not Available [facility] [address] [place] [address], [place], [address], 05/03/2020 17:15:38 05/03/19 21 05/02/2020 urina lysis , compl ete appearance -advantus CLEAR clear Not Available [facility] [address] [facility] [address], [place], [address], 05/03/2020 17:15:38 05/03/19 21 05/02/2020 urina lysis , compl ete glucose -advantus NEGATI VE mg/dL negati ve Not Available [facility] [address] [place] [address], [place], [address], 05/03/2020 17:15:38 05/03/19 21 05/02/2020 urina lysis , compl ete bilirubin -advantus NEGATI VE negati ve Not Available [facility] [address] [place] [address], [place], [address], 05/03/2020 17:15:38 05/03/19 21 05/02/2020 urina lysis , compl ete ketones -advantus NEGATI VE mg/dL negati ve Not Available [facility] [address] [place] [address], [place], [address], 05/03/2020 17:15:38 05/03/19 21 05/02/2020 urina lysis , compl ete sp. gravity -advantus 1.015 1.010- 1.025 Not Available [facility] [address] [place] [address], [place], [address], 05/03/2020 17:15:38 05/03/19 21 05/02/2020 urina lysis , compl ete pH -advantus 6.0 5.0-8. 0 Not Available [facility] [address] [place] [address], [place], [address], 05/03/2020 17:15:38 05/03/19 21 05/02/2020 urina lysis , compl ete protein -advantus NEGATI VE mg/dL negati ve Not Available [facility] [address] [place] [address], [place], [address], 05/03/2020 17:15:38 05/03/19 21 05/02/2020 urina lysis , compl ete urobilinogen -advantus 0.[address] [facility] [address] [facility] [address], [place], [address], 05/03/2020 17:15:38 05/03/19 21 05/02/2020 urina lysis , compl ete nitrites -advantus NEGATI VE negati ve Not Available [facility] [address] [place] [address] [address], [place], [address], 05/03/2020 17:15:38 05/03/19 21 05/02/2020 urina lysis , compl ete blood -advantus NEGATI VE negati ve Not Available [facility] [address] [place] [address], [place], [address], 05/03/2020 17:15:38 05/03/19 21 05/02/2020 urina lysis , compl ete leukocytes -advantus NEGATI VE negati ve Not Available [facility] [address] [place] [address], [place], [address], 05/03/2020 17:15:38 05/03/19 21 05/02/2020 urina lysis , compl ete total urine volume (mL) 100 /mL ----- ----- ----- ----- ----- ----- ----- ----- ----- ----- ----- ----- ----- ----- ---- *Plea se note the follo wing minim um quant ities for addit ional urine testi ng: - Atypi cals: 3 mL - Cytol ogy: 20 mL - GC/CH : 2 mL - FISH: 30 mL - Atypi cals w/ GC/CH : 5 mL - Cytol ogy PLUS FISH: 50 mL - Urine Cultu re: 3 mL ----- ----- ----- ----- ----- ----- ----- ----- ----- ----- ----- ----- ----- ----- ---- Not Available [facility] [address] [facility] [address], [place], [address], 05/03/2020 17:15:38 05/03/19 21 05/02/2020 urina lysis , compl ete U-WBC 0 - 2 [hpf] 0 - 2 Not Available [facility] [address] [facility] [address], [place], [address], 05/03/2020 17:15:38 05/03/19 21 05/02/2020 urina lysis , compl ete U-RBC 0 - 2 [hpf] 0 - 2 Not Available [facility] [address] [place] [address] [address], [place], [address], 05/03/2020 17:15:38 05/03/19 21 05/02/2020 urina lysis , compl ete bacteria Small [hpf] negati ve abnormal Not Available [facility] [address] [place] [address], [place], [address], 05/03/2020 17:15:38 05/03/19 21 05/02/2020 urina lysis , compl ete squamous epi Small /lpf negati ve,sma ll Not Available [facility] [address] [place] [address], [place], [address], 05/03/2020 17:15:38 05/03/19 21 05/02/2020 cultu re, urine final report Microb iology result s SOURC E Void KNOWN ALLER GIES see chart TREAT MENT see chart MEDIA PLATE D AT: Media plate d on 2020 @ 3:57 PM RESUL T No Growt h Not Available [facility] [address] [place] [address], [place], [address], 05/05/2020 09:59:15 01/26/2001/12/2020 CT, abdom en + pelvi s, w/o contr ast No observ ation record ed. [email or web address] Not Available 2019 16:05:16 01/26/2001/11/2020 US, retro perit oneum , compl ete No observ ation record ed. [email or web address] Not Available 2019 16:05:17 01/26/2001/06/2020 US, renal No observ ation record ed. [email or web address] Not Available 2019 16:05:17 Result Notes None recorded. Procedures Surgical History Date Name Laterality Status Provider Name and Address Organization Details Recorded Time 0 Cystoscopy- female completed Frank Jordan [facility] 01/30/2020 18:00:32 Bariatric Surgery completed Milly Peralta [facility] 01/30/2020 14:41:34 Imaging Results Imaging Date Name Status LastModified by Organiz ation Details LastModified Time 01/12/2020 CT, abdomen + pelvis, w/o contrast completed [email or web address] Information not available 01/26/2020 16:05:16 01/11/2020 US, retroperitone um, complete completed Information not available 01/26/2020 16:05:17 01/06/2020 US, renal completed Information no t available 01/26/2020 16:05:17 Procedure Notes None recorded. Medical Equipment None Reported. Allergies Allergen ID Allergen Name Allergen Category Reaction Reaction Severity Criticality Documentation Date Start Date Code Code System Note Provider Name and Address Organization Details Recorded Time 625701 morphine medicatio n Not available Not available Not available 01/30/2020 7052 RxNorm Milly dumont, [facility] 0 14:40:25 Medications Name Sig Start Date Stop Date Status Note LastModified by Organization Details LastModified Time eq sinus 12-hour 120mg tab TAKE 1 TABLET BY MOUTH TWICE DAILY NEEDED FOR NASAL CONGESTION active Not Available Not Available N ot Available amoxicillin 500 mg capsule TAKE 1 CAPSULE BY MOUTH EVERY 8 HOURS UNTIL GONE active Not Available Not Available N ot Available furosemide 40 mg tablet TAKE 1 TABLET BY MOUTH TWICE DAILY active Not Available Not Available No t Available methocarbamo l 500 mg tablet TAKE 1 TO 2 TABLETS BY MOUTH THREE TIMES DAILY active Not Available Not Available Not Available potassium chloride ER 10 mEq capsule,exte nded release TAKE 1 CAPSULE BY MOUTH THREE TIMES DAILY WITH MEALS active Not Available Not Available N ot Available nitrofuranto in macrocrystal 50 mg capsule TAKE 1 CAPSULE BY MOUTH AT BEDTIME TO PREVENT INFECTION 2022 active Not Available Not Available Not Avai lable lamotrigine 200 mg tablet TAKE 1 TABLET BY MOUTH TWICE DAILY active Not Available Not Available No t Available torsemide 20 mg tablet TAKE 2 TABLETS BY MOUTH ONCE DAILY active Not Available Not Available No t Available tizanidine 2 mg tablet TAKE 1 TABLET BY MOUTH EVERY 6 HOURS NEEDED FOR MUSCLE SPASM active Not Available Not Available No t Available fluconazole 150 mg tablet active Not Available Not Available Not Available cephalexin 250 mg capsule TAKE 1 CAPSULE BY MOUTH ONCE DAILY AT BEDTIME TO PREVENT INFECTION active Not Available Not Available No t Available sertraline 100 mg tablet TAKE 1 TABLET BY MOUTH TWICE DAILY active Not Available Not Available No t Available acyclovir 400 mg tablet TAKE 1 TABLET BY MOUTH TWICE DAILY active Not Available Not Available No t Available ciprofloxaci n 500 mg tablet TAKE 1 TABLET BY MOUTH TWICE DAILY FOR 7 DAYS active Not Available Not Available No t Available tramadol 50 mg tablet TAKE 1 TO 2 TABLETS BY MOUTH TWICE DAILY NEEDED FOR PAIN . DO NOT EXCEED 4 PER 24 HOURS SPACE DOSES BY 12 HOURS USE DATES active Not Available Not Available Not Available spironolacto ne 25 mg tablet TAKE 1 TABLET BY MOUTH ONCE DAILY IN THE MORNING active Not Available Not Available Not Available potassium chloride ER 20 mEq tablet,exten ded release(part /cryst) TAKE 2 TABLETS BY MOUTH ONE TIME FOR 1 DOSE active Not Available Not Available No t Available magnesium oxide 400 mg (241.3 mg magnesium) tablet TAKE 1 TABLET BY MOUTH ONCE DAILY active Not Available Not Available No t Available methocarbamo l 750 mg tablet TAKE 1 TO 2 TABLETS BY MOUTH THREE TIMES DAILY active Not Available Not Available Not Available DOK 100 mg capsule TAKE 1 CAPSULE BY MOUTH TWICE DAILY NEEDED FOR CONSTIPATIO N active Not Available Not Available No t Available hydrocodone 7.5 mg-acetamino phen 325 mg tablet TAKE 1 TO 1 & 1 2 (ONE & ONE HALF) TABLETS BY MOUTH EVERY 4 HOURS NEEDED FOR PAIN . DO NOT EXCEED 8 PER 24 HOURS active Not Available Not Available No t Available cephalexin 500 mg capsule TAKE 1 CAPSULE BY MOUTH TWICE DAILY FOR 7 DAYS active Not Available Not Available No t Available Euthyrox 88 mcg tablet TAKE 1 TABLET BY MOUTH ONCE DAILY active Not Available Not Available No t Available buspirone 30 mg tablet TAKE 1 TABLET BY MOUTH THREE TIMES DAILY active Not Available Not Available Not Available ferrous sulfate 325 mg (65 mg iron) tablet TAKE 1 TABLET BY MOUTH TWICE DAILY WITH MEALS active Not Available Not Available No t Available gabapentin 300 mg capsule TAKE 3 CAPSULES BY MOUTH ONCE DAILY IN THE AFTERNOON AND TAKE 4 CAPSULES AT BEDTIME active Not Available Not Available No t Available omeprazole 20 mg capsule,tere yed release TAKE 1 CAPSULE BY MOUTH ONCE DAILY BEFORE MEAL(S) active Not Available Not Available No t Available albuterol sulfate HFA 90 mcg/actuatio n aerosol inhaler INHALE 2 PUFFS BY MOUTH 4 TIMES DAILY active Not Available Not Available Not Available dexamethason e 1.5 mg tablet TAKE 4 TABLETS BY MOUTH IN THE MORNING OF SURGERY.GISSEL E 2 TABLETS MORNING AFTER SURGERY.GISSEL E 1 TABLET TWO MORNINGS AFTER SURGERY active Not Available Not Available No t Available ondansetron 4 mg disintegrati ng tablet active Not Available Not Available No t Available cefdinir 300 mg capsule active Not Available Not Available N ot Available aripiprazole 5 mg tablet TAKE 1 TABLET BY MOUTH ONCE DAILY active Not Available Not Available No t Available nitrofuranto in monohydrate/ macrocrystal s 100 mg capsule TAKE 1 CAPSULE BY MOUTH TWICE DAILY active Not Available Not Available No t Available Sinus 12 Hour 120 mg tablet,exten ded release TAKE 1 TABLET BY MOUTH TWICE DAILY NEEDED FOR NASAL CONGESTION active Not Available Not Available N ot Available chlorhexidin e gluconate 0.12 % mouthwash RINSE WITH 1 CAPFUL FOR 30 SECONDS TWICE A DAY active Not Available Not Available Not Available aripiprazole 2 mg tablet TAKE 1 TABLET BY MOUTH ONCE DAILY active Not Available Not Available No t Available Kurvelo (28) 0.15 mg-0.03 mg tablet TAKE 1 TABLET BY MOUTH ONCE DAILY active Not Available Not Available No t Available Vitals Date Recorded Body height Body mass index (BMI) Body weight Provider Name and Address Organization Details Last Updated DateTime 01/30/2020 162.56 cm 42.9 kg/m2 936903.09 g [facility] 01/30/2020 14:40:06 Date Recorded Body height Body mass index (BMI) Body weight Provider Name and Address Organization Details Last Updated DateTime 05/02/2020 162.56 cm 43.9 kg/m2 727930.65 g Martin Gloriadenice [facility] 05/02/2020 14:18:23 Social History Question Answer Notes LastModified by Organizat ion Details LastModified Time Tobacco Smoking Status Never Smoker Milly Peralta tim, [facility] 01/30/2020 14:42:24 What Is Your Level Of Alcohol Consumption? None Information not available 01/30/2020 What Is Your Level Of Caffeine Consumption? Occasional Information not available 01/30/2020 How Much Tobacco Do You Chew? None Information not available 01/30/2020 Do You Or Have You Ever Used E-cigarettes Or Vape? Never Used Electronic Cigarettes Information not available 01/30/2020 Who Is Your Employer? [email or web address] Information not available 01/30/2020 Ethnicity Not /Lati no Information not available 01/30/2020 Preferred Language Luxembourgish Information not available 01/30/2020 Number Of Pregnancies 0 Information not available 01/30/2020 Number Of Vaginal Deliveries 0 Information not available 01/30/2020 Number Of Caesarean Sections 0 Information not available 01/30/2020 Recreational Drug Use No Information not available 01/30/2020 Could You Be ? No Information not available 01/30/2020 Marital Status 0 Children Informatio n not available 01/30/2020 What Was The Date Of Your Most Recent Tobacco Screening? 05/02/2020 [email or web address] Information not available 05/02/2020 Are You Sexually Active? Yes Information not available 01/30/2020 Do You Or Have You Ever Used Smokeless Tobacco? Never Used Smokeless Tobacco Information not available 01/30/2020 How Much Tobacco Do You Smoke? No Information not available 01/30/2020 Sex: Unknown Functional Status None recorded. Mental Status None recorded. Family History Relationship Description Onset Age of this Age Resolved Age Notes LastModified by Organization Details LastModified Time Maternal Aunt Family history of breast cancer Not available 2019 14:40:47 Maternal Aunt Family history of malignant neoplasm Not available 2019 14:41:04 Unspecified Relation Family history of cancer of colon Not available 2019 14:40:54 Father Family history of Hypertension Not available 09/2019 14:41:14 Mother Family history of Hypertension Not available 09/2019 14:41:14 Mother Family history of renal stone [email or web address] Not available 09/2019 14:55:55 Medical History Condition Response Sexually Transmitted Infection Y GERD/Acid Reflux Y Depression Y Gynecological HistoryNo gynecological history recorded. Obstetrics History GPAL:G 0 P 0 0 0 0 Past Encounters Encounter ID Performer Location Encounter Start Date Encounter Closed Date Diagnosis/Indication Diagnosis SNOMED-CT Code Diagnosis ICD10 Code [id number] [address] 01/30/2020 14:16:16 01/30/2020 15:42:36 Acute pyelonephritis 14206495 N10 Recurrent urinary tract infection 927463739 N39.[id number] [address] 05/02/2020 14:10:58 05/02/2020 14:59:31 Acute pyelonephritis 15717509 N10 Recurrent urinary tract infection 402952880 N39.0 Herniation of rectum into vagina 637779357 N81.6 Health Concerns Section Related Observation LastModified by Organization Detai ls LastModified Time None Recorded Concern Status LastModified by Organization Details LastModified Time None Recorded Advance Directives Directive None Recorded Payers Encounter Date Sequence Insurance Name Policy Number Policy Torres Covered Member ID Torres Member ID Guarantor Name 01/30/2020 [place] [id number] Karuna Leslie [id number] Karuna Leslie 05/02/2020 1 [place] [id number] Karuna Leslie [id number] Karuna Leslie Notes Date Note Type Note Provider Name and Address Organization Details Recorded Time 01/30/2020 text/html Patient presente d to the emergency department January 24, 2020 with a low hemoglobin. She had a prior history of acute renal failure and chronic opioid use and sepsis with septic shock. She had previously been admitted January 03 for an acute kidney injury. She initially presented to [address] 01/04/2020 with severe pyelonephritis and sepsis. Her clinical condition worsened. Patient was then transferred to [facility] from 01/05 to 01/15/2020 because of pyelonephritis and urine culture showing E. coli. She was septic. She has chronic kidney disease and at the time had a baseline creatinine of 1.1. She is status post gastric bypass. For her infection she was put on cefepime but then developed worsening acidosis and went into renal failure with limited response to Lasix. She developed profound septicemia and respiratory failure and had to be intubated. Nephrology was consulted starting her on continuous dialysis. She was finally extubated on 01/07/2020. Urology, Dr. Paco Redd was consulted for recurrent UTIs and did not see any obvious urologic etiology to the patient's presentation. Her clinical condition finally improved and she was discharged on 01/16/2020. Basic metabolic panel 01/23/2020 showed a creatinine of 2.[address] scan January 04, 2020 was normal. Her hemoglobin was 8.4 presumably due to renal insufficiency. Was initially at [address], then transferred to [facility] ICU and had temporary renal failure on dialysis. Renal function improved and no longer on dialysis. CT scan abdomen and pelvis January 12, 2020 showed status post cholecystectomy and gastric bypass surgery. Vague low density identified involving the right kidney possibly due to acute pyelonephritis or renal abscess. She was treated with cefdinir. Prior urine culture January 04, 2020 showed E. coli, mixed sensitivities. Still on antibiotics. Feels very weak. Hgb low. Frank dumont DC - [facility] 01/30/2020 18:03:04 05/02/2020 text/html Patient presente d to the emergency department January 24, 2020 with a low hemoglobin. She had a prior history of acute renal failure and chronic opioid use and sepsis with septic shock. She had previously been admitted January 03 for an acute kidney injury. She initially presented to [address] 01/04/2020 with severe pyelonephritis and sepsis. Her clinical condition worsened. Patient was then transferred to [facility] from 01/05 to 01/15/2020 because of pyelonephritis and urine culture showing E. coli. She was septic. She has chronic kidney disease and at the time had a baseline creatinine of 1.1. She is status post gastric bypass. For her infection she was put on cefepime but then developed worsening acidosis and went into renal failure with limited response to Lasix. She developed profound septicemia and respiratory failure and had to be intubated. Nephrology was consulted starting her on continuous dialysis. She was finally extubated on 01/07/2020. Urology, Dr. Paco Redd was consulted for recurrent UTIs and did not see any obvious urologic etiology to the patient's presentation. Her clinical condition finally improved and she was discharged on 01/16/2020. Basic metabolic panel 01/23/2020 showed a creatinine of 2.[address] scan January 04, 2020 was normal. Her hemoglobin was 8.4 presumably due to renal insufficiency. Was initially at [address], then transferred to [facility] ICU and had temporary renal failure on dialysis. Renal function improved and no longer on dialysis. CT scan abdomen and pelvis January 12, 2020 showed status post cholecystectomy and gastric bypass surgery. Vague low density identified involving the right kidney possibly due to acute pyelonephritis or renal abscess. She was treated with cefdinir. Prior urine culture January 04, 2020 showed E. coli, mixed sensitivities. Still on antibiotics. Feels very weak. Hgb low. On 01/30/2020, cystoscopy was normal. We started nitrofurantoin 50 mg nightly as prophylaxis for infection. Patient was given information on UTIs in women. Urinalysis and urine culture 01/30/2020 both normal. Since early 2020, she has felt a drawing or pressure-like sensation in the vaginal area when she changes from a sitting to a standing position. No difficulty with bowel movements. Frank dumont DC - [facility] 05/02/2020 17:49:47 OBGyn Episode No OBEpisode recorded.
--- OUTSIDE RECORDS SUMMARY | 2024-01-14 14:14 | XMS_ITS | Continuity of Care Document ---
Author Organization [facility] Address [address] [place] [id number] Phone Care Team Providers Care Child And Youth Program Assistant Name Role Phone Mala Penny MD Unavailable Unavailable Allergies, Adverse Reactions, Alerts Substance Reaction Status Criticality morphine Active No Information Medications Medication Instructions Dosage Effective Dates (start - stop) Status Comments GABAPENTIN (unknown strength) Not Available - Active HYDROCODONE-ACETAMINOP HEN (unknown strength) Not Available - Active TIROSINT (unknown strength) Not Available - Active Procedures Procedure Date Postop Followup Visit Bilateral Low Back Disk Surgery/Decompre ss Bilateral Pa Low Back Disk Surgery/Decom press Office/Outpatient Visit,Est, Mod 2014 Office/Outpatient Visit,[facility], Mod 2012 Advance Directives Directive Yes / No Effective Date File Name No Information Encounters Encounter Description Practice Location Reason(s) For Visit Diagnoses Date Provider Providers Copied on Encounter [facility], [address], [place], [place], [id number], [place] tel:[phone] [facility] No Information [id number] Mehbod Amir. [facility], [address] [place] [address], [place], [place], [id number] , [place]. [phone] [facility], [address], [place], [place], [id number], [place] [phone] [facility] OVERWEIGHTSpin al stenosis of lumbar region with neurogenic claudication 0-201 5 Mehbod Amir. [facility], [address] [place] [address], [place], [place], [id number] , [place]. tel:[phone] Referring Provider: Vickie Saleem, [facility] [address], [address]. tel:[phone] [facility], [address], [place], [place], [id number], [place] tel:[phone] [facility] No Information 5 Mehbod Amir. [facility], [address], [place], [place], [id number] , [place]. [phone] Referring Provider: Mala Penny, [facility] [address], [place], [address] . tel:[phone] Office/Outpa tient Visit,Est, Mod [facility], [address], [place], [place], [id number], [place] [phone] [facility] back and leg pain (chief complaint) OVERWEIGHTUnsp ecified hypothyroidism Displacement of intervertebral disc, site unspecified, without myelopathy 5 Mehbod Amir. [facility], [address], [place], [place], [id number] , [place]. [phone] Referring Provider: Mala Penny, [facility] [address], [place], [address] . tel:[phone] Office/Outpa tient Visit,New, Mod Z [facility], [address] [facility] [address], [place], [address], [place] tel:[phone] [facility] Hypothyroidism 3 Mehbod Amir. [facility], [address] [place] [address] [address], [place], [place], [id number] , [place]. tel:[phone] Referring Provider: Vickie Saleem, [facility] [address] [place] [address], [address]. tel:[phone] Family History Family Member Type Diagnosis Age At Onset No Information Payers Payer name Insurance type Covered green party [id number] [facility] [id number] Social History Type Description Quantity Date Captured [...]
--- OUTSIDE RECORDS SUMMARY | 2024-01-14 14:14 | XMS_ITS | Clinical Summary ---
Author Organization [facility] Facility Address [address] [place] [address] Care Team Providers Care Instrumental Music Teacher Name Role Phone Denise Hogan MD Primary Care Provider [phone] Social History Tobacco Use Types Packs/Day Years Used Date Smoking Tobacco: Never Assessed Comments Unknown Sex and Gender Information Value Date Recorded Sex Assigned at Not on file Legal Sex Female 11:38 AM EST Gender Identity Not on file Sexual Orientation [...] on patient's age to complete this topic Insurance [facility] Care Teams Instrumental Music Teacher Relationship Specialty Start Date End Date Denise Hogan MD PCP - General Family Medicine 02/05/20
--- OUTSIDE RECORDS SUMMARY | 2024-01-14 14:14 | XMS_ITS | Clinical Summary ---
Author Organization [facility] Address [place], [place] [address] Care Team Providers Care Dispatcher Service Chief Name Role Phone Mary Dennis SLICING MACHINE OPERATOR/TENDER Unavailable Unavailable Radha Vázquez MD Primary Care P rovider [place] Unavailable Allergies Active Allergy Reactions Criticality Noted Date Comments Morphine Rash,*Unknown 09/06/2008 Erythromycin With Ethanol 03/25/2006 Medications Medication Sig Dispensed Refills Start Date End Date Status multivitamin (MVI) tabletIndications:A bnormal urine odor Take 1 tablet by mouth once daily. 0 0 Active acetaminophen (TYLENOL EXTRA STRGTH) 500 mg tabletIndications:O ther acute postoperative pain,Displacement of lumbar intervertebral disc without myelopathy Take 2 tablets by mouth 4 times daily for 5 days then take only as needed. Max acetaminophen dose: 4000mg in 24 hrs 60 tablet 5 Active cyanocobalamin (VITAMIN B12) 100 mcg tablet Take 100 mcg by mouth once daily. Active docusate (COLACE) 100 mg capsuleIndications: Constipation due to opioid therapy Take 1 capsule by mouth 2 times daily if needed for Constipation. 180 capsule 2 0 Active ondansetron (ZOFRAN) 4 mg tabletIndications:S /P right rotator cuff repair Take 1 Tablet (4 mg) by mouth every 8 hours if needed for Nausea/Vomiting. 20 Tablet 3 Active Denta 5000 Plus 1.1 % crea BRUSH WITH TOOTHPASTE ONCE TO TWICE DAILY 3 Active hydrOXYzine HCL (ATARAX) 10 mg tabletIndications:A nxiety disorder, unspecified type Take 0.5-1 Tablets (5-10 mg) by mouth every 6 hours if needed for Anxiety (nausea). 60 Tablet 2 4 Active levothyroxine (Euthyrox) 125 mcg tabletIndications:H ypothyroidism, unspecified type Take 1 Tablet (125 mcg) by mouth once daily. 90 Tablet 3 4 Active naloxone (Narcan) 4 mg/actuation nasal sprayIndications:Ch ronic pain syndrome,Controlled substance agreement signed 1 spray (4 mg) intranasally into 1 nostril. Administer into alternating nostrils. May repeat every 2 to 3 minutes. 1 Each 1 4 Active methocarbamoL (ROBAXIN) 750 mg tabletIndications:C hronic pain syndrome,Chronic right SI joint pain,Spasm TAKE 1 TO 2 TABLETS BY MOUTH EVERY 6 HOURS FOR MUSCLE SPASM 240 Tablet 4 Active ARIPiprazole (ABILIFY) 10 mg tabletIndications:M oderate episode of recurrent major depressive disorder (HC),Anxiety disorder, unspecified type Take 1 Tablet (10 mg) by mouth once daily. 90 Tablet 1 4 Active busPIRone (BUSPAR) 30 mg tabletIndications:A nxiety disorder, unspecified type Take 1 Tablet (30 mg) by mouth two times daily. 180 Tablet 1 4 Active lamoTRIgine 200 mg tabletIndications:M oderate episode of recurrent major depressive disorder (HC) Take 1 Tablet (200 mg) by mouth two times daily. 180 Tablet 1 4 Active sertraline (ZOLOFT) 100 mg tabletIndications:M oderate episode of recurrent major depressive disorder (HC),Anxiety disorder, unspecified type Take 1 Tablet (100 mg) by mouth two times daily. 180 Tablet 1 4 Active gabapentin (NEURONTIN) 300 mg capsuleIndications: Chronic pain syndrome,Post laminectomy syndrome,Chronic right SI joint pain,Failed back surgical syndrome TAKE 2 CAPSULES IN THE AFTERNOON AND 3 CAPSULES AT BEDTIME 150 Capsule 4 Active acyclovir (ZOVIRAX) 400 mg tabletIndications:H erpes simplex type 1 infection Take 1 Tablet (400 mg) by mouth two times daily. 180 Tablet 3 4 Active famotidine (PEPCID) 40 mg tabletIndications:G astroesophageal reflux disease without esophagitis,History of gastric bypass Take 1 Tablet (40 mg) by mouth once daily. 90 Tablet 3 4 Active levonorgestrel-ethi nyl estrad, 0.15-30 mg-mcg, (Ramon, 28,) 0.15-0.03 mg tabletIndications:U ses control Take 1 Tablet by mouth once daily. 84 Tablet 3 4 Active omeprazole (PRILOSEC) 20 mg Delayed-Release capsuleIndications: Gastroesophageal reflux disease without esophagitis,History of gastric bypass Take 1 Capsule (20 mg) by mouth once daily before a meal. 90 Capsule 3 4 Active potassium chloride (MICRO-K) 10 mEq Controlled-release capsuleIndications: Hypokalemia Take 2 Capsules (20 mEq) by mouth two times daily with meals. 360 Capsule 3 4 Active torsemide (DEMADEX) 20 mg tabletIndications:S welling of lower extremity Take 2-3 Tablets (40-60 mg) by mouth once daily. Take 3 tablets on days when swelling is worse. 180 Tablet 3 4 Active pseudoephedrine (SUDAFED 12 HOUR) 120 mg TbERIndications:Antonio al congestion Take 1 Tablet (120 mg) by mouth every 12 hours. 180 Tablet 3 4 Active cephalexin (KEFLEX) 250 mg capsuleIndications: Recurrent UTI Take 1 tablet (250 mg) once a day for UTI suppression. 90 Capsule 3 4 Active fluconazole (DIFLUCAN) 150 mg tabletIndications:S inusitis, unspecified chronicity, unspecified location Take 1 tablet one time. If symptoms are not resolved 72 hours after first pill, take 2nd pill. 2 Tablet 4 Active buprenorphine (Belbuca) 150 mcg buccal filmIndications:Chr onic pain syndrome,Post laminectomy syndrome,Chronic right SI joint pain,Failed back surgical syndrome Place 1 Film (150 mcg) in mouth, between cheek & gum every 12 hours. Use date: 01/13/24-02/11/24 60 Each 4 Active HYDROcodone-acetami nophen (7.5-325 mg/tablet)Indicatio ns:Chronic pain syndrome,Post laminectomy syndrome,Failed back surgical syndrome,Encounter for therapeutic drug monitoring Take 1-1.5 Tablets by mouth every 4 hours if needed for Pain (max 5/day). Use dates 01/18/24-02/16/24 150 Tablet 4 Active buprenorphine (Belbuca) 150 mcg buccal filmIndications:Chr onic pain syndrome,Post laminectomy syndrome,Chronic right SI joint pain,Failed back surgical syndrome Place 1 Film (150 mcg) in mouth, between cheek & gum every 12 hours. Use date: 12/14/23-01/12/24 60 Each 4 01/06/20 Discontinu ed(Reorder (E-cancel not sent)) HYDROcodone-acetami nophen (7.5-325 mg/tablet)Indicatio ns:Chronic pain syndrome,Post laminectomy syndrome,Failed back surgical syndrome,Encounter for therapeutic drug monitoring Take 1-1.5 Tablets by mouth every 4 hours if needed for Pain (max 5/day). Use dates 12/19/23-01/17/24 150 Tablet 4 01/06/20 Discontinu ed(Reorder (E-cancel not sent)) Active Problems Problem Noted Date Diagnosed Date History of gastric bypass 12/03/2023 Raynaud's phenomenon without gangrene 05/18/2023 Lateral epicondylitis of right elbow 12/07/2022 Controlled substance agreement signed 11/30/2022 Overview (11/30/2022): [facility] Elaine Schwab CMA 1:36 PM 11/30/22 S/P right rotator cuff repair 10/30/2022 Nontraumatic complete tear of right rotator cuff 09/17/2022 S/P arthroscopy of right shoulder 09/17/2022 Severe episode of recurrent major depressive disorder, without psychotic features 03/14/2021 Hyperparathyroidism 01/28/2021 Overview (01/28/2021): saw Endo in 2016, suspect eitology is due to D3 and Calcium deficiency related to Irving-Y Gastric bypass minimum of 500 mg of calcium 5000 International Units per day of D3 Hypertriglyceridemia 11/30/2020 Overview (11/30/2020): 11/30/20 ASCVD risk score is 0%, TG [...] disease) stage 3, GFR 30-59 ml/min 11/29/2020 Overview (07/24/2022): 2/2 multiple AKIs in setting of multiple UTI, most severe UTI had E coli Sepsis in December of 2019, was on ventilator requiring dialysis. Was able to stop dialysis in Dec 2019 but Cr plateaued at 1.9 despite trying to adjust medications that might have made it worse (torsemide and omeprazole) Recurrent UTI 11/29/2020 Overview (11/29/2020): recurrent UTIs in 9975-5029, had CT imaging negative for stones, cystoscopy with normal bladder wall Pain disorder with related psychological factor 03/28/2019 Sleep difficulties 04/30/2017 H/O sinusitis 01/22/2017 Overview (11/29/2020): Has been on Chronic Pseudophed - helped [...] YOLANDA I (cervical intraepithelial neoplasia I) 02/2011 Overview (12/04/2022): 05/30/2009 ASCUS/HPV+ 06/09/2010 LSIL 07/08/2010 Frederica: YOLANDA I 06/11/2011 LSIL 07/07/2011 Frederica: negative 03/29/2012 NIL/HPV+; Frederica: cervicitis 08/27/2015 ASCUS/HPV negative; Frederica: no biopsy 12/08/2019 NIL/HPV negative 11/27/2022 NIL/HPV negative Plan: Pap/HPV due 11/2025 Unspecified personality disorder 10/04/2009 Vitamin B12 deficiency 09/06/2008 Overview (11/29/2020): after gastric bypass surgery (low normal B12; elevated methylmalonic acid) Premenstrual tension syndromes 03/25/2006 Unspecified hypothyroidism 03/25/2006 Gastroesophageal reflux disease without esophagi tis 03/25/2006 Chronic, continuous use of opioids Resolved Problems Problem Noted Date Diagnosed Date Resolved Date Controlled substance agreement signed 06/13/2021 11/30/2022 Overview (06/13/2021): [facility] Patti Suazo .................... 06/13/2021 2:32 PM Controlled substance agreement signed 05/10/2020 06/13/2021 MILANA (acute kidney injury) 01/08/2020 Septic encephalopathy 01/06/20202020 Metabolic acidosis 01/06/2020 1 Metabolic acidemia 01/06/2020 1 Metabolic acidosis with respiratory acidosis 0 11/01/2020 [...] 11/01/2020 Controlled substance agreement signed 05/12/2019 06/13/2021 Overview (05/12/2019): Judy Rios .[facility] Ami Huffman CMA....05/12/2019 1:08 PM Encounters for unspecified a dministrative purpose 03/28/2019 11/29/2020 Sepsis due to gram-negative urinary tract infection 12/12/2018 11/01/2020 MILANA (acute kidney injury) 12/11/2018 UTI (urinary tract infection) 12/11/2018 11/01/2020 Controlled substance agreement signed 07/15/2018 05/12/2019 Therapeutic drug monitoring 10/23/2016 11/29/2020 GABRIELLA (generalized anxiety disorder) 03/14/2015 04/12/2018 Pain medication agreement 04/24/2011 Overview (09/27/2017): Signed at [facility] on 09/17/17 Major depressive disorder, r ecurrent episode, moderate 10/04/2009 04/12/2018 Unspecified constipation 02/25/2009 Unspecified essential hypertension 04/06/2007 05/30/2009 Major depressive disorder, r ecurrent episode, in full remission 04/06/2007 10/04/2009 Anxiety state, unspecified 03/25/2006 0 05/05/2016 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 [place] [address] Shivani Marinelli, SAUL Refill Request 12/03/2023 7:55 AM CDT Office Visit [address] [address] Radha Vázquez MD Medication Management; Weight; Sinus Problem (Onset 1 week); Immunization/Injection 12/03/2023 Travel 12/01/2023 Refill [facility] [address] [address] Shivani Marinelli, SAUL Refill Request (gabapentin (NEURONTIN) 300 mg capsule) 12/01/[address] [address] Radha Vázquez MD Refill Request ( Control) 11/26/2023 7:45 AM CDT Telemedicine [facility] [address] [place] [address] Judy Luis MD Anxiety 11/21/2023 Travel 11/15/2023 Refill [facility] [address] [address] Shivani Marinelli, SAUL Refill Request 11/05/2023 Refill [facility] [address] [address] Shivani Marinelli, SLICING MACHINE OPERATOR/TENDER Refill Request 11/03/[address] [address] Radha Vázquez MD Refill Request (Metformin ) 11/02/2023 Telephone [facility] [address] [place] [address] Harman Martinez MD Refill Request (PREDINISONE) 10/26/2023 9:40 AM CDT Office Visit [facility] [address] [place] [address] Harman Martinez MD Procedure (Right L5-S1 TFESI) 10/20/2023 8:30 AM CDT Office Visit [facility] [address] [place] [address] Shivani Marinelli, SLICING MACHINE OPERATOR/TENDER Follow Up 10/20/2023 Travel from Last 3 Months Immunizations Name Administration Dates Next Due COVID-19 VACCINE SPIKEVAX (M ODERNA 50MCG/0.5ML) 12YO+ PFS 12/03/2023,07/16/2023 COVID-19 vaccine (Moderna 100mcg/0.5mL) PF, MDV 06/27/2020,05/29/2020 COVID-19 vaccine (Pfizer-Bio NTech 30mcg/0.3mL) 12YO+ BIVALENT PF, MDV 11/28/2021 COVID-19 vaccine (Pfizer-Bio NTech 30mcg/0.3mL) 12YO+ WU-SUCROSE PF, MDV 09/19/2021 DTP 06/05/1981, 8,1976,1976,1976 Hepatitis A (Adult) 04/03/2013,07/23/2011 Hepatitis B (Adult) 12/03/2009,10/29/2009 Hepatitis B (Peds) 07/23/2011 Human Papilloma Virus Vaccine 03/25/2006 INFLUENZA, IIV3 PF (AGE >= 6 MO) 12/03/2023 Influenza, IIV3 (Age >=3 years) 11/23/19 16,11/21/2013,11/29/2012,2011,12/04/2010 [...] PHQ-2 Answer Date Recorded PHQ-2 TOTAL SCORE 3 12/03/2023 Alcohol Use Answer Date Recorded How often do you have a drink containing alcohol ? 0 08/22/2021 Average Number of Drinks Not on file 022 Frequency of Binge Drinking Not on file 0702/2021 Financial Resource Strain Answer Date R ecorded [...] Sign Reading Time Taken Comments Blood Pressure 138/84 12/24/2023 10:02 AM CDT Pulse 86 12/24/2023 10:02 AM CDT Temperature 36.5 C (97.7 F) 12/24/2023 10:02 AM CDT Respiratory Rate 18 12/03/2023 8:06 AM CDT Oxygen Saturation 100% 10/20/2023 8:42 AM CDT Inhaled Oxygen Concentration - - Weight 126.9 kg (279 lb 12.8 oz) 12/03/2023 8:06 AM CDT Height 161 cm (5' 3.39) 12/03/2023 8:06 AM CDT Body Mass Index 48.96 12/03/2023 8:06 AM CDT Plan of Treatment Upcoming Encounters Date Type Department Care Team (Late st Contact Info) Description 01/14/2024 2:40 PM CANTEEN ATTENDANT Office Visit [facility] [address] [place] [address] Harman Martinez MD [address] [place] [address] Arrived 01/28/2024 10:00 AM CANTEEN ATTENDANT Office Visit [facility] [address] [place] [address] Siobhan Mills PA [address] [place] [address] 02/04/2024 9:15 AM CANTEEN ATTENDANT Telemedicine [facility] [address] [place] [address] Judy Luis MD [address] [place] [address] 02/08/2024 1:30 PM CANTEEN ATTENDANT Nurse/Clinic Staff Only [address] [address] 02/09/2024 11:15 AM CANTEEN ATTENDANT Nurse/Clinic Staff Only [address] [address] 03/03/2024 9:40 AM CANTEEN ATTENDANT Office Visit [facility] [address] [facility] [address] Harman Martinez MD [address] [facility] [address] 03/28/2024 3:00 PM CANTEEN ATTENDANT Telemedicine [facility] [address] [place] [address] Jenny Marcelo NP [address] [place] [address] Health Maintenance Due Date Last Done Comments Mammogram for age 45-75 09/16/2024 09/17/19, 11/06/2021, 08/18/2019, Additional history exists BMI (ht and wt on same day) for age 18+ 12/02/2024 12/03/2023, 07/16/2023, 11/27/2022, Additional history exists Depression screening for age 12+ 12/02/2024 12/03/2023, 11/26/2023, 09/06/2023, Additional history exists Pap test for age 21-65 11/27/2025 , 11/27/2022, 12/08/2019, Additional history exists Lipids for age 45-75 12/23/2028 12/24/2023, 11/27/2022, 03/19/2022, Additional history exists Tetanus booster 09/20/2031 09/19/2021, [...] complete this topic COVID-19 vaccine series Completed 12/03/19, 07/16/2023, 11/28/2021, Additional history exists Influenza for age 9-49 Completed , 11/17/2022, 11/28/2021, Additional history exists Medical Devices Implanted Type Area Hydrometer Tester Device Identifier Shelf Expiration Date Model / Serial / Lot Ancr Soft Tissue [id number] Swivelock - [id number] Implanted:Qty: 1 on 09/17/2022 by Memo Eaton MD at [facility] Right: Shoulder [employer] 03/24/2026 [id number] / / [id number] Biocomposite Knotless Swivelock [place] Implanted:Qty: 1 on 09/17/2022 by Memo Eaton MD at [facility] Right: Shoulder [employer] 05/22/2026 / [facility] C / [id number] Biocomposite Knotless Swivelock [place] Implanted:Qty: 1 on 09/17/2022 by Memo Eaton MD at [facility] Right: Shoulder [employer] 10/22/2025 / [facility] [employer] [employer]4[facility] CTT / [id number] Biocomposite Knotless Swivelock [place] Implanted:Qty: 1 on 09/17/2022 by Memo Eaton MD at [facility] Right: Shoulder [employer] 04/21/2026 / [facility] [employer]4[facility] C / [id number] Biocomposite Knotless Swivelock [place] Implanted:Qty: 1 on 09/17/2022 by Memo Eaton MD at [facility] Right: Shoulder [employer] 09/21/2025 / [facility]2324[facility] CT / [id number] Procedures Procedure Name Priority Date/Time Associated Diagnosis Comments AMB EPIDURAL STEROID INJECTION Routine 01/14/2024 8:04 AM CANTEEN ATTENDANT Lumbar radiculopathy 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 VITAMIN D 25 (DEFICIENCY) Routine 12/24/2023 8:25 AM CDT Hyperparathyroidism (HC) LIPID PANEL W REFLEX MEASURED LDL Routine 12/24/2023 8:25 AM CDT FPC current use of antipsychotic medication HEMOGLOBIN A1C Routine 12/24/2023 8:25 AM CDT FPC current use of antipsychotic medication VITAMIN B12 Routine 12/24/2023 8:25 AM CDT History of gastric bypass BASIC METABOLIC PANEL Routine 12/24/2023 8:25 AM CDT Encounter for monitoring long-term proton pump inhibitor therapy CBC W PLT NO DIFF Routine 12/24/2023 8:2 5 AM CDT Encounter for monitoring long-term proton pump inhibitor therapy History of gastric bypass AMB EPIDURAL STEROID INJECTION Routine 10/26/2023 8:20 AM CDT Lumbar radiculopathy 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 NV NJX AA&/STRD TFRML EPI LUMBAR/SACRAL 1 LEVEL Routine 10/26/2023 12:00 AM CDT Lumbar radiculopathy 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 XR MAMMO BILAT SCREENING Routine 09/17/2023 2:03 PM CDT Encounter for screening for malignant neoplasm of breast, unspecified screening modality HPV HIGH RISK Routine 11/27/2022 11:16 AM CDT Screening for cervical cancer COLONOSCOPY 05/04/2022 11:08 AM CDT ANTI HIV 1/2 Routine 09/19/2021 9:47 AM CDT Sexually transmitted infection ANTI HCV Routine 02/18/2011 4:15 PM CANTEEN ATTENDANT Screen for STD (sexually transmitted disease) from Last 3 Months or Most Recently Relevant to Health Maintenance Results * HEMOGLOBIN A1C (12/24/2023 8:25 AM CDT) HEMOGLOBIN A1C 5.0 <5.7 % of total Hgb [facility] Comment: For the purpose of screening for the presence of diabetes: <5.7% Consistent with the absence of diabetes 5.7-6.4% Consistent with increased risk for diabetes (prediabetes) > or =6.5% Consistent with diabetes This assay result is consistent with a decreased risk of diabetes. Currently, no consensus exists regarding use of hemoglobin A1c for diagnosis of diabetes in children. According to [place] Diabetes Association (ADA) guidelines, hemoglobin A1c <7.0% represents optimal control in non- diabetic patients. Different metrics may apply to specific patient populations. Standards of Medical Care in Diabetes(ADA). Blood BLOOD SPECIMEN / Unknown 12/24/2023 8:25 AM CDT 12/24/2023 8:26 AM CDT Radha Vázquez MD MEDIA PROMOTER RY [employer] [address] [place] [address], [facility] [address] [place] [address] * (ABNORMAL) LIPID PANEL W REFLEX MEASURED LDL (12/24/2023 8:25 AM CDT) [facility] CHOLESTEROL, TOTAL 138 <200 mg/dL [facility] HDL CHOLESTEROL 55 > OR = 50 mg/dL [facility] TRIGLYCERIDES 167(H) <150 mg/dL [facility] LDL-CHOLESTEROL 58 mg/dL (calc) [email or web address] Comment: Reference range: <100 Desirable range <100 mg/dL for primary prevention; <70 mg/dL for patients with CHD or diabetic patients with > or = 2 CHD risk factors. LDL-C is now calculated using the Jose-Desi calculation, which is a validated novel method providing better accuracy than the Friedewald equation in the estimation of LDL-C. Jose SS et al. RACHEL. 2013;310(19): 9548-1960 (http://education.[employer].Tourjive/faq/BPG036) CHOL/HDLC RATIO 2.5 <5.0 (calc) [facility] NON HDL CHOLESTEROL 83 <130 mg/dL (calc) [facility] Comment: For patients with diabetes plus 1 major ASCVD risk factor, treating to a non-HDL-C goal of <100 mg/dL (LDL-C of <70 mg/dL) is considered a therapeutic option. Blood BLOOD SPECIMEN / Unknown 12/24/2023 8:25 AM CDT 12/24/2023 8:26 AM CDT Radha Vázquez MD MEDIA PROMOTER RY Performing Organization Address City/[facility]/ZIP Co de Phone Number [facility] [address] [place] [address], [place] [phone] [facility] [address] [place] [address] * VITAMIN D 25 (DEFICIENCY) (12/24/2023 8:25 AM CDT) VITAMIN D,25-OH,TOTAL,IA 39 30 - 100 ng/mL [facility] Comment: Vitamin D Status 25-OH Vitamin D: Deficiency: <20 ng/mL Insufficiency: 20 - 29 ng/mL Optimal: > or = 30 ng/mL For 25-OH Vitamin D testing on patients on D2-supplementation and patients for whom quantitation of D2 and D3 fractions is required, the [facility](TM) 25-OH VIT D, (D2,D3), LC/MS/MS is recommended: order code 47461 (patients >2yrs). See Note 1 Note 1 For additional information, please refer to http://education.[employer]/faq/JQM739 (This link is being provided for informational/ educational purposes only.) Blood BLOOD SPECIMEN / Unknown 12/24/2023 8:25 AM CDT 12/24/2023 8:26 AM CDT Radha Vázquez MD SEND OU TS [employer] [address] [employer] [address], [place] [phone] [email or web address] [address] [place] [address] * (ABNORMAL) CBC W PLT NO DIFF (12/24/2023 8:25 AM CDT) Pathologist [facility] WHITE BLOOD CELL COUNT 6.0 3.8 - 10.8 Thousand/u L [facility] RED BLOOD CELL COUNT 3.48(L) 3.80 - 5.10 Million/uL [facility] HEMOGLOBIN 11.6(L) 11.7 - 15.5 g/dL [facility] HEMATOCRIT 36.2 35.0 - 45.0 % [facility] MCV 104.0(H) 80.0 - 100.0 fL [facility] MCH 33.3(H) 27.0 - 33.0 pg [facility] MCHC 32.0 32.0 - 36.0 g/dL [facility] Comment: For adults, a slight decrease in the calculated MCHC value (in the range of 30 to 32 g/dL) is most likely not clinically significant; however, it should be interpreted with caution in correlation with other red cell parameters and the patient's clinical condition. RDW 11.2 11.0 - 15.0 % [facility] PLATELET COUNT 305 140 - 400 Thousand/u L [facility] MPV 10.3 7.5 - 12.5 fL [facility] Blood BLOOD SPECIMEN / Unknown 12/24/2023 8:25 AM CDT 12/24/2023 8:26 AM CDT Radha Vázquez MD HEMATOL OGY [facility] [address] [place] [address], [facility] [address] [place] [address] * VITAMIN B12 (12/24/2023 8:25 AM CDT) [facility] VITAMIN B12 722 200 - 1,100 pg/mL [facility] Blood BLOOD SPECIMEN / Unknown 12/24/2023 8:25 AM CDT 12/24/2023 8:26 AM CDT Radha Vázquez MD MEDIA PROMOTER RY [facility] [place] [facility] [address] [place] [address], [facility] [address] [place] [address] * (ABNORMAL) BASIC METABOLIC PANEL (12/24/2023 8:25 AM CDT) Pathologist [facility] GLUCOSE 100(H) 65 - 99 mg/dL [facility] Comment: Fasting reference interval For someone without known diabetes, a glucose value between 100 and 125 mg/dL is consistent with prediabetes and should be confirmed with a follow-up test. UREA NITROGEN (BUN) 29(H) 7 - 25 mg/dL [facility] CREATININE 1.41(H) 0.50 - 0.99 mg/dL [facility] EGFR 46(L) > OR = 60 mL/min/1.7 3m2 [facility] BUN/CREATININE RATIO 21 6 - 22 (calc) [facility] SODIUM 141 135 - 146 mmol/L [facility] POTASSIUM 4.5 3.5 - 5.3 mmol/L [facility] CHLORIDE 107 98 - 110 mmol/L [facility] CARBON DIOXIDE 25 20 - 32 mmol/L [facility] ELECTROLYTE BALANCE 9 7 - 17 mmol/L (calc) [facility] CALCIUM 8.7 8.6 - 10.2 mg/dL [facility] Blood BLOOD SPECIMEN / Unknown 12/24/2023 8:25 AM CDT 12/24/2023 8:26 AM CDT Radha Vázquez MD MEDIA PROMOTER [employer] [facility] [address] [place] [address], [facility] [address] [place] [address] * [place] NJX AA&/STRD TFRML EPI LUMBAR/SACRAL 1 LEVEL (10/26/2023 12:00 AM CDT) Harman Martinez MD PB - NERVOUS SYSTE M SERVICES * XR MAMMO BILAT SCREENING (09/17/2023 2:03 PM CDT) Anatomical Region Laterality Modality BREASTS, Breast Left, Breast Right Bilateral Mammography Impressions 09/17/2023 3:44 PM CDT There is no radiographic evidence for malignancy. Recommend annual mammograms. MAMMOGRAM ASSESSMENT: ACR 1 Negative PATIENTS: You will also receive a letter with your examination results in an easy to read format. If you have questions about your results, please contact your referring provider. Narrative 09/17/2023 3:44 PM CDT For Patients: As a result of the Century Cures Act, medical imaging exams and procedure reports are released immediately into your electronic medical record. You may view this report before your referring provider. If you have questions, please contact your health care provider. XR MAMMO BILAT SCREENING [[id number]] CLINICAL HISTORY: This is an asymptomatic 48 y.o. patient. INDICATION FOR EXAM: Mammogram Screening. TECHNIQUE: CC & MLO views were obtained. This study was evaluated with the assistance of Computer-Aided Detection. COMPARISON FILM: Yes 11/06/21 [employer] FINDINGS: The breasts are almost entirely fatty. There are no dominant masses, suspicious micro calcifications or areas of architectural distortion. Radha Vázquez MD MAMMO * HPV HIGH RISK (11/27/2022 11:16 AM CDT) TYPE 16 Negative Negative 12/02/2022 5:48 AM CDT [facility] TYPE 18 Negative Negative 12/02/2022 5:48 AM CDT [facility] OTHER HIGH RISK TYPES Negative Negative 12/02/2022 5:48 AM CDT [facility] Other (Cervical) Non-Blood / Unknown 11/27/2022 11:16 AM CDT 11/30/2022 9:44 AM CDT Narrative [facility] - 12/02/2022 5:48 AM CDT HPV types 16, 18, 31, 33, 35, 39, 45, 51, 52, 56, 58, 59, 66 and 68 DNA were undetectable or below the pre-set threshold. Methodology: Sarah Koib 4800 HPV Test Radha Vázquez MD [facility] [address] [place] [address], [place] * COLONOSCOPY (05/04/2022 11:08 AM CDT) 05/04/2022 11:0 8 AM CDT Narrative Transcriptions Ezekiel Linda DO - 05/04/2022 11:40 AM CDT Patient Name: [...] adequate candidate for conscious sedation. The endoscope -[id number] was passed through the anus andadvanced to [...] ANTI HIV 1/2 (09/19/2021 9:47 AM CDT) HIV-1/HIV-2 ANTIBODY Non-Reacti ve Non-Reacti ve 09/19/2021 9:28 PM CDT [facility] Comment:HIV-1 p24 and HIV-1/ HIV-2 Ab not detected. Blood BLOOD SPECIMEN / Unknown Venipuncture / Unknown 09/19/2021 9:47 AM CDT 09/19/2021 9:50 AM CDT Radha Vázquez MD SEND OU TS [facility] [address] [place] [address], * ANTI HCV (02/18/2011 4:15 PM CANTEEN ATTENDANT) ANTI HCV Non-reacti ve [facility] Blood specimen (specimen) BLOOD SPECIMEN / Unknown 02/18/2011 4:15 PM CANTEEN ATTENDANT 02/18/2011 4:06 PM CANTEEN ATTENDANT Jeevan Madrid MD SEND OUTS [facility] INTERNAL ZIP [id number] [address] from Last 3 Months or Most Recently [...] Comments Code Status Discussion: Discussed Care Teams Dispatcher Service Chief Relationship Specialty Start Date End Date Radha Vázquez MD [address] [facility] [place] [address] PCP - General Family Practice 11/29/20 Mary Dennis NP Psychiatry Nurse Practitioner 04/24/16 Siobhan Mills PA [address] [place] [facility] [address] [place] [address] Pain Management Physician Meat Cutter Apprentice 01/07/24
== END 2024-01-14 14:12 | disposition home or self-care (01) ==
LOC: INJ CL 14:12
PROVIDERS: PCP Family Medicine; Visit Provider Family Medicine
DX: M54.16 Radiculopathy, lumbar region (principal)
CPT/HCPCS: 64483; J1100; Q9966

== ENCOUNTER 2024-04-18 21:06 | Outpatient (CLI) | payer OTHER, SELFPAY | END 2024-04-18 21:07 | disposition home or self-care (01) | LOC: SLEEP 21:07 | PROVIDERS: PCP Family Medicine; Visit Provider Nurse Practitioner | DX: G47.33 Obstructive sleep apnea (adult) (pediatric) (principal) | CPT/HCPCS: 95810 ==

== ENCOUNTER 2024-05-30 07:22 | Outpatient (CLI) | payer OTHER, SELFPAY | END 2024-05-30 07:23 | disposition home or self-care (01) | LOC: INJ CL 07:24 | PROVIDERS: PCP Family Medicine; Visit Provider Family Medicine | DX: M54.16 Radiculopathy, lumbar region (principal); M48.061 Spinal stenosis, lumbar region without neurogenic claudication | CPT/HCPCS: 64483; J0702; Q9966 ==

== ENCOUNTER 2024-10-17 14:02 | Outpatient (CLI) | payer OTHER, SELFPAY | END 2024-10-17 14:03 | disposition home or self-care (01) | LOC: INJ CL 14:03 | PROVIDERS: PCP Family Medicine; Visit Provider Family Medicine | DX: M54.16 Radiculopathy, lumbar region (principal); M51.369 Other intervertebral disc degeneration, lumbar region without mention of lumbar back pain or lower extremity pain | CPT/HCPCS: 64483; Q9966 ==

== ENCOUNTER 2025-01-12 12:50 | Outpatient (CLI) | payer OTHER, SELFPAY | END 2025-01-12 12:51 | disposition home or self-care (01) | LOC: INJ CL 12:52 | PROVIDERS: PCP Family Medicine; Visit Provider Family Medicine | DX: M54.16 Radiculopathy, lumbar region (principal); M51.369 Other intervertebral disc degeneration, lumbar region without mention of lumbar back pain or lower extremity pain | CPT/HCPCS: 64483; Q9966 ==